=== PATIENT | male | born 1970 | race Caucasian/White ===

== ENCOUNTER 2023-09-21 08:07 | Day surgery (SDC) | payer OTHER, SELFPAY ==
[2023-09-21] VITALS (12 sets, daily range): BP systolic 128–162; BP diastolic 00–106; PULSE 65–75; RESP 16; TEMP 36.4–36.7; O2SAT 94–99; BMI 36.9
--- OUTSIDE RECORDS SUMMARY | 2023-09-21 08:14 | XMS_ITS | Clinical Summary ---
Author Name Unknown Organization [facility] Address [place], [place] [address] Care Team Providers Care Candy Department Manager Name Role Phone GoshenKatya muhammad CODEY Primary Care Provider [phone] Allergies Active Allergy Reactions Criticality Noted Date Comments Penicillins Anaphylaxis High 03/07/2017 Medications Medication Sig Dispensed Refills Start Date End Date Status psyllium (METAMUCIL FIBER SINGLES) 3.4 gram pwpk packet Take 1 Packet by mouth 2 times daily. Active acetaminophen (TYLENOL EXTRA STRGTH) 500 mg tablet Take 2 Tablets (1,000 mg) by mouth every 6 hours if needed. Max acetaminophen dose: 4000mg in 24 hrs. 0 1 Active omeprazole (PRILOSEC) 20 mg Delayed-Release capsule Take 1 Capsule (20 mg) by mouth once daily before a meal. 2 Active lancets (Microlet Lancet)Indications: Controlled type 2 diabetes mellitus without complication, without long-term current use of insulin (HC) TEST one TIME A DAY 100 Each 2 Active fenofibrate 160 mg tabletIndications:H yperlipidemia, unspecified hyperlipidemia type Take 1 Tablet (160 mg) by mouth once daily with a meal. 90 Tablet 3 3 Active naproxen (ALEVE) 220 mg tablet Take 2 Tablets (440 mg) by mouth every 12 hours if needed for Pain. 0 3 Active aspirin (ECOTRIN) 81 mg enteric coated tablet Take 1 Tablet (81 mg) by mouth once daily with a meal. 0 3 Active atenoloL (TENORMIN) 100 mg tabletIndications:H ypertension Take 1 Tablet (100 mg) by mouth once daily. 90 Tablet 1 4 Active gabapentin (NEURONTIN) 100 mg capsuleIndications: Spinal stenosis of lumbar region with neurogenic claudication,Low back pain radiating to both legs Take 2 Capsules (200 mg) by mouth once daily. 180 Capsule 1 4 Active blood sugar diagnostic (Contour Next Test Strips) stripIndications:Co ntrolled type 2 diabetes mellitus without complication, without long-term current use of insulin (HC) USE ONE STRIP TO TEST ONCE DAILY 100 Each 3 4 Active metFORMIN (GLUCOPHAGE XR) 500 mg Extended-Release tabletIndications:C ontrolled type 2 diabetes mellitus without complication, without long-term current use of insulin (HC) Take 3 Tablets (1,500 mg) by mouth once daily with evening meal. 270 Tablet 1 4 Active glipiZIDE extended-release (GLUCOTROL XL) 2.5 mg Extended-Release tabletIndications:C ontrolled type 2 diabetes mellitus without complication, without long-term current use of insulin (HC) Take 1 Tablet (2.5 mg) by mouth once daily before a meal. 60 Tablet 1 4 Active pravastatin (PRAVACHOL) 20 mg tabletIndications:C ontrolled type 2 diabetes mellitus without complication, without long-term current use of insulin (HC) Take 1 Tablet (20 mg) by mouth at bedtime. 90 Tablet 3 4 Active losartan (COZAAR) 100 mg tabletIndications:H ypertension, unspecified type Take 1 Tablet (100 mg) by mouth once daily. 90 Tablet 3 4 Active amLODIPine (NORVASC) 2.5 mg tabletIndications:H ypertension, unspecified type Take 1 Tablet (2.5 mg) by mouth once daily. 31 Tablet 1 4 Active multivitamin (MVI) tablet Take 1 Tablet by mouth once daily. 09/11/19 24 Discontinue d(*Patient states no longer taking) magnesium glycinate 100 mg magnesium cap Take 260 mg by mouth two times daily. 09/11/19 24 Discontinue d(*Patient states no longer taking) losartan (COZAAR) 100 mg tabletIndications:H ypertension Take 1 Tablet (100 mg) by mouth once daily. 90 Tablet 4 09/11/19 24 Discontinue d(Reorder (E-cancel not sent)) metFORMIN (GLUCOPHAGE XR) 500 mg Extended-Release tabletIndications:C ontrolled type 2 diabetes mellitus without complication, without long-term current use of insulin (HC) Take 2 Tablets (1,000 mg) by mouth two times daily with meals. 360 Tablet 1 4 08/26/19 24 Discontinue d(Reorder (E-cancel not sent)) pravastatin (PRAVACHOL) 20 mg tabletIndications:C ontrolled type 2 diabetes mellitus without complication, without long-term current use of insulin (HC) Take 1 Tablet (20 mg) by mouth at bedtime. 60 Tablet 4 09/11/19 24 Discontinue d(Reorder (E-cancel not sent)) amLODIPine (NORVASC) 2.5 mg tabletIndications:H ypertension, unspecified type Take 1 Tablet (2.5 mg) by mouth once daily. 30 Tablet 4 09/11/19 24 Discontinue d(Reorder (E-cancel not sent)) glipiZIDE 2.5 mg tabIndications:Cont rolled type 2 diabetes mellitus without complication, without long-term current use of insulin (HC) Take 2.5 mg by mouth once daily. 30 Tablet 4 09/11/19 24 Discontinue d(Reorder (E-cancel not sent)) Knee WalkerIndications:C alcific Achilles tendonitis,Bone spur of posterior portion of right calcaneus,Deana's deformity of right heel For home use. *Note that item is a rental.* Height: 5'8'' Weight: 235 Diagnosis: right foot surgery 09/21/23, Length of need: 3 months 1 Each 4 09/10/19 Active Problems Problem Noted Date Diagnosed Date Spinal stenosis, lumbar zana on, with neurogenic claudication 03/12/2023 Spinal stenosis of lumbar re gion with neurogenic claudication 03/06/2021 Colon polyps 04/12/2020 Controlled type 2 diabetes m ellitus without complication, without long-term current use of insulin 08/27/2018 Cervical spinal stenosis 08/26/2018 Status post cervical discectomy 08/26/2018 Dysphagia 08/26/2018 Osteophyte of spine 08/26/2018 Sleep apnea 07/20/2018 Overview: Resolved enough with removal of bone spur, repeat sleep study much improved November 2018. See Dr. Brand notes. Gout 08/13/2017 Overview: when on HCTZ GERD (gastroesophageal reflux disease) 8 Hyperlipidemia 01/12/2008 Hypertension 01/12/2008 Resolved Problems Problem Noted Date Diagnosed Date Resolved Date Cervical spinal stenosis 09/16/2018 Prediabetes 08/26/2018 03/17/2019 Impaired fasting glucose 08/13/2017 Class 2 obesity due to exces s calories without serious comorbidity with body mass index (BMI) of 37.0 to 37.9 in adult 08/13/2017 Sleep apnea 08/13/2017 04/12/2020 Overview: can't tolerate CPAP Encounters Date Type Department Care Team Description 09/19/2023 Travel 09/15/2023 Telephone [facility] [address] [place] [phone] Charly Ko DPM Form (Short term disability ) 09/11/2023 7:30 AM CDT Preop Visit [facility] [address] [facility] [place] [address] Katya Ireland NP Pre-Op Exam; Follow Up (Blood pressure ) 09/11/2023 Travel 09/09/2023 Telephone [facility] [address] [place] [address] Charly Ko DPM Questions (surgery ) 09/08/2023 8:30 AM CDT Office Visit [facility] [address] [facility] [address] [place] [phone] Charly Ko DPM Consult (Right achilles tendonitis, discuss surgery ) 09/08/2023 Travel 09/06/2023 Travel 09/06/[address] [address] Katya Ireland NP Refill Request (Atenolol) 08/26/2023 2:20 PM CDT Phone Office Visit [address] [phone] Ktaya Ireland NP Phone Visit (Medication check ) 08/26/2023 Travel 08/18/2023 4:00 PM CDT Nurse/Clinic Staff Only [address] [phone] Blood Pressure 08/18/2023 3:00 PM CDT Office Visit [facility] [address] [phone] Tom Arce PA Ankle Pain/problem (right achilles injury) 08/18/2023 2:55 PM CDT Ancillary Procedure [facility] [address] [place] [address] 08/18/[address] [phone] Katya Ireland NP Follow Up (calling back) 08/18/[address] [address] Charly Ko DPM Appointment Request (Right ankle pain, unspecified chronicity [M25.571]/Achilles tendinitis, right leg [M76.61] /) 08/18/2023 Travel 08/07/2023 7:45 AM CDT - 08/07/2023 11:59 PM CDT Hospital Encounter [facility] [address] [place] [address] Jam Gregg MD Schelling, Derek, PT 08/07/[address] [phone] Katya Ireland NP Refill Request (Contour Next Test Strips) 08/07/2023 Travel 07/31/2023 9:10 AM ANALYTICAL ENGINEER Office Visit [address] [phone] Katya Ireland NP Blood Pressure; Referral (Orthopedic surgeon ); Diabetes (Blood sugars ); Foot Problem (Having swelling in his feet ) 07/31/2023 Travel 07/28/2023 Travel 07/21/2023 7:45 AM ANALYTICAL ENGINEER - 07/21/2023 11:59 PM ANALYTICAL ENGINEER Hospital Encounter [facility] [address] [place] [address] Jam Gregg MD Schelling, Derek, PT 07/21/2023 Travel 07/21/[address] [phone] Katya Ireland, CODEY Refill Request (Gabapentin) 07/14/2023 7:44 AM ANALYTICAL ENGINEER - 07/14/2023 11:59 PM ANALYTICAL ENGINEER Hospital Encounter [facility] [address] [place] [address] Jam Gregg MD Schelling, Derek, PT Encounter for person encountering health services 07/14/2023 Travel 07/10/2023 Transcribe Orders [facility] [address] [place] [address] Jam Gregg MD from Last 3 Months Immunizations Name Administration Dates Next Due COVID-19 vaccine ([employer] 30mcg/0.3mL) 12YO+ BIVALENT PF, MDV 05/19/2022 Tdap 10/13/2016,05/29/2006 Family History Medical History Relation Name Comments Hypertension Brother Sleep apnea Brother Cancer Father ? Heart failure Father Stroke Maternal Uncle Cancer Mother breast X2 Cancer-pancreatic Mother Hypertension Mother Diabetes Paternal Grandmother No Known Problems Sister 1 No Known Problems Sister 2 Relation Name Status Comments Brother Alive Father Maternal Grandfather Maternal Grandmother Maternal Uncle Mother Paternal Grandfather Paternal Grandmother Sister 1 Alive Sister 2 Alive Social History Tobacco Use Types Packs/Day Years Used Date Smoking Tobacco: Never Smokeless Tobacco: Never Tobacco Cessation:Counseling Given: Yes Alcohol Use Standard Drinks/Week Comments Yes 0 (1 standard drink = 0.6 oz pur e alcohol) once a week PHQ-2 Answer Date Recorded PHQ-2 TOTAL SCORE 2 03/02/2023 Social Connections Answer Date Recorded Frequency of Communication with Friends and Fami ly 0 07/28/2023 Financial Resource Strain Answer Date R ecorded Difficulty of Paying Living Expenses 3 07/28/2023 Difficulty of Paying Living Expenses Not on file 07/28/2023 Food Insecurity Answer Date Recorded Worried About Running Out of Food in the Last Ye ar 1 07/28/2023 Transportation Needs Answer Date Record ed Lack of Transportation (Medical) 1 07/28/2023 Housing Stability Answer Date Recorded Unable to Pay for Housing in the Last Year 1 07/28/2023 Sex and Gender Information Value Date Recorded Sex Assigned at Not on file Gender Identity Not on file Sexual Orientation Not on file Obstetrics History Last Filed Vital Signs Vital Sign Reading Time Taken Comments Blood Pressure 130/78 09/11/2023 7:35 AM CDT Pulse 74 09/11/2023 7:35 AM CDT Temperature 36.5 ??C (97.7 ??F) 03/12/2023 2:00 PM CD T Respiratory Rate 16 03/12/2023 3:00 PM CDT Oxygen Saturation 92% 09/08/2023 8:33 AM CDT Inhaled Oxygen Concentration - - Weight 110.2 kg (242 lb 14.4 oz) 09/11/2023 7:35 AM CDT Height 172.7 cm (5' 8) 03/12/2023 6:36 AM CDT Body Mass Index 36.93 03/12/2023 6:36 AM CDT Plan of Treatment Upcoming Encounters Date Type Department Care Team (Late st Contact Info) Description 09/21/2023 8:30 AM CDT Office Visit [facility] [address] [facility] [place] [address] Charly Ko DPM [address] [place] [address] Arrived 09/24/2023 11:30 AM CDT Office Visit [facility] [address] [place] [phone] Charly Ko DPM [address] [place] [address] 10/06/2023 9:15 AM CDT Office Visit [facility] [address] [place] [phone] Charly Ko DPM [address] [place] [address] 11/03/2023 9:30 AM CDT Office Visit [facility] [address] [place] [address] Charly Ko DPM [address] [place] [address] Health Maintenance Due Date Last Done Comments Pneumococcal series for age 6-64 (1 of 2 - PCV) 1974 Hepatitis B series for Diabetes (1 of 3 - 19+ 3-dose series) 1987 Zoster (shingles) series for age 50+ (1 of 2) 2018 COVID-19 vaccine series (2022- season) 2023 05/19/2022, 01/15/2021, 12/25/2020 BMI (ht and wt on same day) for age 18+ 05/19/2023 05/19/2022, 04/04/2021, 03/06/2021, Additional history exists Fecal testing non-DNA (FIT,FOBT,iFOBT) for age 45-75 10/07/2023 10/06/2022, 04/11/2020 Influenza for age 50-64 01/24/2024 Depression screening for age 12+ 03/02/2024 03/02/2023, 03/02/2023, 02/18/2023, Additional history exists HIV for age 15-65 10/23/2024 Postponed from 1983 (Patient discretion) Tetanus booster 10/13/2026 10/13/2016, 05/29/2006 Lipids for age 45-75 07/30/2028 07/31/2023, 05/19/2022, 03/06/2021, Additional history exists Tdap Completed 10/13/2016, 05/29/2006 Hepatitis C screening for age 18-79 Completed 12/06/2021 Medical Devices Implanted Type Area Barrel Lathe Operator Device Identifier Shelf Expiration Date Model / Serial / Lot [id number] llofuse Cor/Can Marge 9 Implanted:Qty: 1 on 09/16/2018 by Jam Gregg MD at [facility] Explanted:at [facility] (Quantity not on file) N/A: Spine [employer] 08/11/2022 [id number] / / [id number] Description:ALLOFUSE COR/CAN MARGE 9MM [id number] llofuse Cor/Can Marge 7mm Implanted:Qty: 1 on 09/16/2018 by Jam Gregg MD at [facility] Explanted:at [facility] (Quantity not on file) N/A: Spine [employer] 02/06/2023 [id number] / / [id number] Description:ALLOFUSE COR/CAN MARGE 7MM Screw Vasile 4.0x16mm Implanted:Qty: 6 on 09/16/2018 by Jam Gregg MD at [facility] N/A: Spine [id number] / / Description:SCREW VASILE 4.0X16 MM Plate Cetra 40mm 2 Lvl Implanted:Qty: 1 on 09/16/2018 by Jam Gregg MD at [facility] N/A: Spine [id number] / / Description:PLATE CETRA 40MM 2 LVL Procedures Procedure Name Priority Date/Time Associated Diagnosis Comments POTASSIUM Routine 09/11/2023 8:20 AM CDT Pre-op exam Hypertension, unspecified type XR ANKLE 3 VIEWS RIGHT Routine 08/18/2023 2:58 PM CDT Right ankle pain, unspecified chronicity URINE ALBUMIN TO CREATININE RATIO, RANDOM Routine 07/31/2023 10:30 AM ANALYTICAL ENGINEER Controlled type 2 diabetes mellitus without complication, without long-term current use of insulin (HC) LIPID PANEL W REFLEX MEASURED LDL Routine 07/31/2023 10:25 AM ANALYTICAL ENGINEER Controlled type 2 diabetes mellitus without complication, without long-term current use of insulin (HC) URIC ACID Routine 07/31/2023 10:25 AM ANALYTICAL ENGINEER History of gout BASIC METABOLIC PANEL Routine 07/31/2023 10:25 AM ANALYTICAL ENGINEER Controlled type 2 diabetes mellitus without complication, without long-term current use of insulin (HC) HEMOGLOBIN A1C Routine 07/31/2023 10:25 AM ANALYTICAL ENGINEER Controlled type 2 diabetes mellitus without complication, without long-term current use of insulin (HC) OCCULT BLOOD IFOBT STOOL Routine 10/06/2022 2:11 PM CDT Screening for colon cancer ANTI HCV Routine 12/06/2021 4:37 PM CDT Encounter for hepatitis C screening test for low risk patient from Last 3 Months or Most Recently Relevant to Health Maintenance Results * POTASSIUM (09/11/2023 8:20 AM CDT) POTASSIUM 4.1 3.5 - 5.1 mmol/L 09/11/2023 8:41 AM CDT [facility] Blood BLOOD SPECIMEN / Unknown Venipuncture / Unknown 09/11/2023 8:20 AM CDT 09/11/2023 8:20 AM CDT Katya Ireland SNOW REMOVER CHEMISTRY [facility] [address] [place], [place] [phone] * XR ANKLE 3 VIEWS RIGHT (08/18/2023 2:58 PM CDT) Anatomical Region Laterality Modality ANKLES, ANKLE R Computed Radiogr aphy 08/19/2023 6:54 AM CDT Narrative 08/19/2023 6:54 AM CDT For Patients: ??As a result of the Cures Act, medical imaging exams and procedure reports are released immediately into your electronic medical record. ??You may view this report before your referring provider. ??If you have questions, please contact your health care provider. INDICATION: Chronic right ankle pain. TECHNIQUE: Three views right ankle. FINDINGS: Degenerative hyper trophic spurring and bone formation at the articular margins. Ankle mortise spacing is maintained. No lytic bone destruction, fracture or dislocation. Small talar beak. Small plantar calcaneal enthesophyte. Soft tissue swelling and extremely large calcification at the insertion of the Achilles tendon consistent with chronic as well as possibly acute tendinitis. Impression : 1. Chronic right ankle arthropathy. No acute abnormality. 2. Enthesophyte with Achilles tendon calcification and marked soft tissue swelling. Dictated by Chong Benites MD @ 08/19/2023 6:54:07 AM (Electronically Signed) Procedure Note Real Benites MD - 08/19/2023 For Patients: As a result of the Cures Act, medical imagingexams and procedure reports are released immediately into your electronicmedical record. You may view this report before your referring provider.If you have questions, please contact your health care provider. INDICATION: Chronic right ankle pain. TECHNIQUE: Three views right ankle. FINDINGS: Degenerative hyper trophic spurring and bone formation at the articularmargins. Ankle mortise spacing is maintained. No lytic bone destruction,fracture or dislocation. Small talar beak. Small plantar calcanealenthesophyte. Soft tissue swelling and extremely large calcification at the insertion ofthe Achilles tendon consistent with chronic as well as possibly acutetendinitis. Impression : 1. Chronic right ankle arthropathy. No acute abnormality. 2. Enthesophyte with Achilles tendon calcification and marked soft tissueswelling. Dictated by Chong Benites MD @ 08/19/2023 6:54:07 AM (Electronically Signed) [facility] * URINE ALBUMIN TO CREATININE RATIO, RANDOM (07/31/2023 10:30 AM ANALYTICAL ENGINEER) ALB RAND URINE 13.8 mg/L 07/31/2023 11:20 PM ANALYTICAL ENGINEER [facility] CREATININE,URIN E 1.55 g/L 07/31/2023 11:20 PM ANALYTICAL ENGINEER [facility] ALBUMIN TO CREATININE RATIO,RAND UR 8.9 <30.0 mg/g creat 07/31/2023 11:20 PM ANALYTICAL ENGINEER [facility] Urine URINE SPECIMEN / Unknown Non-Blood / Unknown 07/31/2023 10:30 AM ANALYTICAL ENGINEER 07/31/2023 10:30 AM ANALYTICAL ENGINEER Narrative [facility] - 07/31/2023 11:20 PM ANALYTICAL ENGINEER If Albumin to Creatinine Ratio is elevated, consider the following: ? Elevations seen with incipient nephropathy associated ?? with diabetes mellitus or hypertension. Stress, exercise,hematuria, ?? and urinary tract infection may also produce elevated results. If clinically indicated, confirm with ?24 Hour Albumin to Creatinine Ratio. ?? Katya Ireland NP URINE [facility] [address] [place] [address], * (ABNORMAL) LIPID PANEL W REFLEX MEASURED LDL (07/31/2023 10:25 AM ANALYTICAL ENGINEER) CHOLESTEROL,TOTAL 114 100 - 199 mg/dL 07/31/2023 10:56 AM ANALYTICAL ENGINEER [facility] Comment: Cholesterol, Total Reference Ranges Desirable <200 mg/dL Borderline 200-239 mg/dL High >=240 mg/dL TRIGLYCERIDES 305(H) <150 mg/dL 07/31/2023 10:56 AM [facility] HDL CHOLESTEROL 32(L) >40 mg/dL 10:56 AM [facility] NON-HDL CHOLESTEROL 82 <145 mg/dl 07/31/2023 10:56 AM [facility] CHOL/HDL RATIO 3.56 <4.50 07/31/2023 10:56 AM [facility] LDL CHOLESTEROL 21 <=130 mg/dL 07/31/2023 10:56 AM [facility] VLDL CHOLESTEROL 61(H) <=30 mg/dL 07/31/2023 10:56 AM [facility] PROVIDER ORDERED STATUS RANDOM 07/31/2023 10:56 AM [facility] Blood BLOOD SPECIMEN / Unknown Venipuncture / Unknown 07/31/2023 10:25 AM ANALYTICAL ENGINEER 07/31/2023 10:27 AM ANALYTICAL ENGINEER Katya Ireland NP CHEMISTRY Performing Organization Address City/[facility]/ZIP Co de Phone Number [facility] [address] [place] [address] * URIC ACID (07/31/2023 10:25 AM ANALYTICAL ENGINEER) URIC ACID 4.8 3.4 - 7.0 mg/dL 07/31/2023 10:56 AM [facility] Blood BLOOD SPECIMEN / Unknown Venipuncture / Unknown 07/31/2023 10:25 AM ANALYTICAL ENGINEER 07/31/2023 10:27 AM ANALYTICAL ENGINEER Katya Ireland NP CHEMISTRY Performing Organization Address City/[facility]/ZIP Co de Phone Number [facility] [address] [place] [address] * (ABNORMAL) HEMOGLOBIN A1C MONITORING (POCT) (07/31/2023 10:25 AM ANALYTICAL ENGINEER) HEMOGLOBIN A1C MONITORING (POCT) 7.8(H) <=6.4 % 07/31/2023 10:44 AM [facility] Blood BLOOD SPECIMEN / Unknown Venipuncture / Unknown 07/31/2023 10:25 AM ANALYTICAL ENGINEER 07/31/2023 10:27 AM [facility] - 07/31/2023 10:44 AM ANALYTICAL ENGINEER ? (<=6.9%) ? Indicates good control ? (7.0% to 7.9%) ? Indicates fair control ? (>=8.0%) ? Indicates poor control ?? NOTE: ??These thresholds are guidelines and ?individual targets may vary. Falsely low levels may be seen with: Recent Transfusion, Recent Significant Blood Loss, Hemolytic Diseases, or Falsely elevated levels may be seen with: Untreated Anemias, Splenectomy ? Katya Ireland NP CHEMISTRY [facility] [address] [place] [address] * (ABNORMAL) BASIC METABOLIC PANEL (07/31/2023 10:25 AM [facility]) SODIUM 141 136 - 145 mmol/L 07/31/2023 10:56 AM [facility] POTASSIUM 4.5 3.5 - 5.1 mmol/L 07/31/2023 10:56 AM [facility] CHLORIDE 103 98 - 107 mmol/L 07/31/2023 10:56 AM [facility] CO2,TOTAL 28 22 - 29 mmol/L 07/31/2023 10:56 AM [facility] ANION GAP 10 5 - 18 07/31/2023 10:56 AM [facility] GLUCOSE 143(H) 70 - 99 mg/dL 07/31/2023 10:56 AM [facility] CALCIUM 9.7 8.6 - 10.0 mg/dL 07/31/2023 10:56 AM [facility] BUN 14 6 - 20 mg/dL 07/31/2023 10:56 AM [facility] CREATININE 0.69(L) 0.70 - 1.20 mg/dL 07/31/2023 10:56 AM [facility] BUN/CREAT RATIO 20 10 - 20 10:56 AM [facility] eGFR >90 >90 mL/min/1.7 3m2 07/31/2023 10:56 AM [facility] Comment:As of 2021, eG FR is calculated by the CKD-EPI creatinine equation without race adjustment. ??eGFR can be influenced by muscle mass, exercise, and diet. ??The reported eGFR is an estimation only and is only applicable if the renal function is stable. Blood BLOOD SPECIMEN / Unknown Venipuncture / Unknown 07/31/2023 10:25 AM ANALYTICAL ENGINEER 07/31/2023 10:27 AM ANALYTICAL ENGINEER Katya Ireland NP CHEMISTRY Performing Organization Address City/[facility]/ZIP Co de Phone Number [facility] [address] [place] [address] * OCCULT BLOOD IFOBT STOOL (10/06/2022 2:11 PM CDT) STOOL BLOOD ,IFOBT Negative Negative 10/08/2022 3:01 PM CDT [facility] Stool STOOL SPECIMEN / Unknown Non-Blood / Unknown 10/06/2022 2:11 PM CDT 10/08/2022 2:11 PM CDT [facility] [address] [place] [address], * ANTI HCV (12/06/2021 4:37 PM CDT) HEPATITIS C ANTIBODY Non-React arturo Non-React arturo 12/07/2021 1:59 PM CDT [facility] Comment:Antibodies to HCV no t detected; does not exclude the possibility of exposure to HCV. Blood BLOOD SPECIMEN / Unknown Venipuncture / Unknown 12/06/2021 4:37 PM CDT 12/06/2021 4:59 PM CDT Katya Ireland SNOW REMOVER SEND OUTS [facility] [address] [place] [address], [place] from Last 3 Months or Most Recently Relevant to Health Maintenance Advance Directives * Full Code (Latest Code Status on File) Date Activated Date Inactivated Comments 03/12/2023 10:28 AM 03/12/2023 5:37 PM Question Answer Comments Code Status Discussion: Per Existing Order * Full Code Date Activated Date Inactivated Comments 03/29/2021 6:54 PM 04/01/2021 2:12 PM Question Answer Comments Code Status Discussion: Per Existing Order * Full Code Date Activated Date Inactivated Comments 09/16/2018 9:08 PM 09/17/2018 6:27 PM Care Teams Candy Department Manager Relationship Specialty Start Date End Date Katya Ireland NP [address] [place] [id number] PCP - General Family Practice 12/01/17
[2023-09-21] MEDS: LACTATED RINGERS 1000 ML 1,000 ML 100 ML IV ×2 (08:30→10:28)
[2023-09-21] MEDS: SODIUM CHLORIDE 0.9 % (FLUSH) 10 ML SYRINGE IVF (08:49)
--- NOTE | 2023-09-21 09:15 | XR_ITS ---
Patient: JOHANNA GUTIERREZ Facility:?[facility] Patient ID:?[id number] Site Patient ID:?[id number]. Site :?[id number] Study:?XRay-Extremity Right CALCANEUS-09/21/2023 11:18:47 AM Ordering Physician:NANI Final Report: Indication: RT CALCANEUS OSTEOTOMY AND ACHILLES REPAIR Technique: One fluoroscopic image of the right calcaneus. Fluoroscopic time 7.1 seconds. IMPRESSION: Fluoroscopic guidance for right calcaneus osteotomy and Achilles repair. Dictated by Earle Hensley MD @ 09/21/2023 12:04:25 PM Signed by:?Earle Hensley MD @09/21/2023 12:04:25 PM (Electronic Signature)
[2023-09-21] MEDS: fentaNYL 100 MCG/2 ML inj IVP (09:29)
[2023-09-21] MEDS: MIDAZOLAM HCL 1 MG/ML inj IVP (09:29)
--- NOTE | 2023-09-21 09:30 | SUR.PREOP ---
TIME?OUT:?927 PT/RN/MDA?VERIFICATION?OF?SURGICAL?SITE Right Foot,?PROCEDURE Nerve Block,?AND?CONSENT OBTAINED?PRIOR?TO?INVASIVE?PROCEDURE.
[2023-09-21] MEDS: CEFAZOLIN 2 GM INJ IVP (09:55)
--- NOTE | 2023-09-21 11:18 | W.ANESCHARGE ---
Anesthesia Charges Start Date/Time Anesthesia Start Date: 09/21/23 Anesthesia Start Time: 09:42 Stop Date/Time Anesthesia Stop Date: 09/21/23 Anesthesia Stop Time: 11:19
--- NOTE | 2023-09-21 11:25 | W.PM.PODPROC ---
Date of Procedure: 09/21/23 Surgeon: Charly Ko DPM Pre-op Diagnosis: 1. 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 bone spur right calcaneus Post-op Diagnosis: 1. 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 bone spur right calcaneus Type of Procedure: 1. calcaneal ostectomy Achilles tendon reattachment right Indications: the patient has had ongoing pain in the right Achilles tendon insertion. He has significant bony spurring. He does not respond to conservative care. He has elected surgical intervention. I reviewed the procedure, recovery, expectation potential complications. These include but not limited to: Poor wound healing, infection, under correction, regrowth, continued pain, possible need for future surgery, deep venous thrombosis, pulmonary embolism, complex regional pain syndrome and possible . He understands risks and written consent was obtained. Site marked. Procedure Description: Patient brought the operating room and a spinal anesthetic was performed by anesthesia. A pre operative popliteal block was also performed by and anesthesia. He was then rolled into a prone position on the operating room table. He was prepped and draped in sterile fashion. Standard time-out protocol followed. The right limb was exsanguinated the tourniquet inflated To 300 mm Hg. Linear incision was made over the posterior calcaneus and Achilles tendon insertion. The incision was carried down through skin subcutaneous tissues. The Achilles tendon was then split down the middle and reflected medial and lateral wait for the large bony spurring. Bone spur was resected with a rongeur. The dorsal superior tubercle was resected with a sagittal saw. A power bur was used to remodel the posterior heel. C-arm confirmed excellent resection of all prominent bone. Area was thoroughly irrigated normal sterile saline. SwiveLock anchor placed in the posterior superior calcaneus x2. The Achilles tendon was debrided and repaired with 3-0 Vicryl. Fiber tape from the SwiveLock anchors were then passed through each slip of the Achilles tendon and the mediolateral slips were anchored back down to the calcaneus. Once slip from each FiberTape was brought together and tensioned into the calcaneus with a SwiveLock anchor. This was done medial and lateral. This point the Achilles tendon was firmly reattached to the calcaneus. Thorough irrigation performed. Subcutaneous tissues reapproximated with 4-0 Vicryl and 4-0 Monocryl. Skin closed with 4-0 Prolene. Sterile dressing was applied. tourniquet was released and capillary fill time returned all digits. Well-padded posterior splint was placed with the foot in gravity dorsiflexion. He was transferred from OR to PACU vital signs stable vascular status intact. He will be discharged per Anesthesia and same-day protocols. He is given both written and verbal postop instructions. He is given oxycodone for pain. He is to be strict nonweightbearing. He will follow up in clinic in 2-3 days. Anesthesia: MAC, regional and spinal Hemostasis: thigh Estimated blood loss (mL): 2 Implants: [employer] SpeedBridge implant system. Disposition: PACU
--- NOTE | 2023-09-21 12:01 | W.ANESCHARGE ---
Anesthesia Charges Start Date/Time Anesthesia Start Date: 09/21/23 Anesthesia Start Time: 09:42 Stop Date/Time Anesthesia Stop Date: 09/21/23 Anesthesia Stop Time: 11:19
--- NOTE | 2023-09-21 12:02 | P.NB_ITS ---
Nerve Block Nerve Block Time Seen by Provider: 09:35 Date Seen: 09/21/23 Type of block requested by surgeon for post-operative analgesia: popliteal Side: right Time out performed: Yes Verification of patient name: Yes Verification of date of : Yes Site marking: site marked Name of person performing procedure: Girish Continuous monitoring Was continuous monitoring of O2 sat, B/P, teletypesetter monitor, recorded every 15 minutes?: Yes Procedure Checklist: sterile prep, needles and gloves Ultrasound guided. Images saved: Yes Medications given in 5ml increments after negative aspiration: Ropivicaine %: 0.5 mL: 20 Needle gauge: 22 Patient tolerated procedure well: Yes Additional comments: Needle noted adjacent to nerve Block Charges Block Charge (with Pro Fee): Sciatic Nerve Use of Ultrasound Machine for Block: Yes- US Guidance/pain block
== END 2023-09-21 12:55 | disposition home or self-care (01) ==
PROVIDERS: PCP Family Medicine; Visit Provider Podiatrist
PROC: (CPT 28300; principal; 2023-09-21 09:15)
DX: M76.61 Achilles tendinitis, right leg (principal); M77.31 Calcaneal spur, right foot; M21.6X1 Other acquired deformities of right foot; M92.61 Juvenile osteochondrosis of tarsus, right ankle; G89.18 Other acute postprocedural pain
CPT/HCPCS: 28118; 27691; 01472; 01480; 64445; 73630; 73650; 76000; 76942; 82962; A4580; C1713; J0690; J1100; J2250; J2405; J2704; J2795; J3010; J7120

== ENCOUNTER 2024-07-05 13:06 | Outpatient (RCR) | payer OTHER, SELFPAY ==
--- NOTE | 2024-07-05 14:42 | PT.OPEX ---
PT [place] Outpatient Eval PT [facility] Outpatient Eval Start: 07/05/24 09:49 Freq: Status: Active Protocol: Document 07/05/24 13:29 MRS (Rec: 07/05/24 14:37 MRS No Response) E-signed By Nataliya Gama DPT Physical Therapy Outpatient Evaluation Insurance Information Recert Due Date 10/02/24 Insurance Name [employer] Medical Diagnosis Osteoarthritis left hip; scheduled for L [place] on 06/2024 Treating Diagnosis Pain in Left Hip M25.552 Stiffness of Hip Left M25.652 Difficulty Walking R26.2 Referring MD Jason Butt MD Subjective Preferred Name King Subjective King reports doing well and here for pre-op evaluation for L [place]. King has been experiencing pain and difficulty with mobility for the past 6-8 months. He experiences pain with bending, lifting, stairs, and walking. King has PMH: diabetes, HTN, arthritis, allergies; penicillin, orthopedic surgeries to remove bone spurs in neck, back, and heels. King plans to stay overnight in hospital and then discharge to home. King's sister will be staying with him for the first week after surgery. Pt's main goal is to walk, bend over, and be active with minimal pain. 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 Pt demonstrated lack ~15 degrees of extension in supine position. Pt limited by pain Strength R HF= 4/5 R Hip ER/IR= 4/5 with pain Balance & Gait independent, antalgic gait pattern with left hip in flexed position during stance Sensation/Reflexes bilateral feet numbness since back surgery but able to sense tactile input and proprioception while walking Functional Test Performed & Score LEFS= 39/80 Assessment Assessment/Impression King is a pleasant 54 y/o male who presents with signs and symptoms consistent with left hip osteoarthritis and to have pre-op PT evaluation. King has DOS: 07/14/[address] Butt . King plans to stay 1 night in the hospital and then discharge home. His sister will be staying with him for at least 1 week after surgery. King has AD from previous orthopedic surgeries. Anticipated deficits/ impairments in pain, ROM, and strength. Pt would benefit from skilled PT interventions to facilitate return to PLOF by increasing strength, ROM, endurance, and independence with pain-free functional mobility.? Primary Functional Limitations pain, impaired ROM, decreased strength, impaired functional mobility and endurance. Plan of Care Rehabilitation Potential Good Physical Therapy Goals Within this session: 1. Pt will verbalize understanding of pre-op/post- op safety, mobility and exercises with home program issued and pt returning for ongoing therapy after [place] replacement. Coordination/Communication With Referral Source Treatment Plan/Direct Interventions Gait Training,Neuromuscular Re -ed,Therapeutic Activities, Therapeutic Exercises Frequency/Duration 1-2x/week for 8-12 weeks; Pt will be receiving OP PT in [place] starting the first week of July Patient Will Be Discharged From Therapy Completion of LTG(s),Skills Plateau,Independent w/HEP, Independently Progressing Evaluation Billing Untimed Code Treatment Minutes 20 Complexity Low Certification Information Initial Certification Date 07/05/24 Ending Certification Date 10/02/24 Provider Signature Required Communication Only-No Signature Required
== END 2024-11-02 23:59 | disposition home or self-care (01) ==
PROVIDERS: PCP Family Medicine; Visit Provider Orthopaedic Surgery
DX: Z48.89 Encounter for other specified surgical aftercare (principal); M16.12 Unilateral primary osteoarthritis, left hip; Z96.642 Presence of left artificial hip joint; Z51.89 Encounter for other specified aftercare
CPT/HCPCS: 97110; 97161; 97530

== ENCOUNTER 2024-07-14 07:02 | Day surgery (SDC) | payer OTHER, SELFPAY ==
[2024-07-14] VITALS (25 sets, daily range): BP systolic 123–177; BP diastolic 9–115; PULSE 71–114; RESP 12–17; TEMP 36.4–37.2; O2SAT 92–100; BMI 36.6
--- OUTSIDE RECORDS SUMMARY | 2024-07-14 07:05 | XMS_ITS | Clinical Summary ---
Author Organization [email or web address] Address [address] [place] [id number] Care Team Providers Care Distribution Transformer Assembler Name Role Phone Bryn Irelandie CODEY Primary Care Provider [phone] Allergies Active Allergy Reactions Criticality Noted Date Comments Penicillins Anaphylaxis High 03/07/2017 Medications psyllium (METAMUCIL FIBER SINGLES) 3.4 gram pwpk packet Take 1 Packet by mouth 2 times daily. Active omeprazole (PRILOSEC) 20 mg Delayed-Release capsule Take 1 Capsule (20 mg) by mouth once daily before a meal. 05/19/20 22 Active lancets (Microlet Lancet)Indications :Controlled type 2 diabetes mellitus without complication, without long-term current use of insulin (HC) TEST one TIME A DAY 100 Each 05/19/20 22 Active aspirin (ECOTRIN) 81 mg enteric coated tablet Take 1 Tablet (81 mg) by mouth once daily with a meal. 0 03/02/20 23 Active blood sugar diagnostic (Contour Next Test Strips) stripIndications:C ontrolled type 2 diabetes mellitus without complication, without long-term current use of insulin (HC) USE ONE STRIP TO TEST ONCE DAILY 100 Each 3 08/08/19 24 Active pravastatin (PRAVACHOL) 20 mg tabletIndications: Controlled type 2 diabetes mellitus without complication, without long-term current use of insulin (HC) Take 1 Tablet (20 mg) by mouth at bedtime. 90 Tablet 3 09/11/19 24 Active losartan (COZAAR) 100 mg tabletIndications: Hypertension, unspecified type Take 1 Tablet (100 mg) by mouth once daily. 90 Tablet 3 09/11/19 24 Active atenoloL (TENORMIN) 100 mg tabletIndications: Hypertension TAKE ONE TABLET BY MOUTH ONCE DAILY 90 Tablet 1 01/30/20 24 Active acetaminophen SR (Tylenol 8 Hour) 650 mg Extended-Release tablet 2 tablets at bedtime/ Max acetaminophen dose: 4000mg in 24 hrs. 05/03/20 24 Active gabapentin (NEURONTIN) 100 mg capsuleIndications :Spinal stenosis of lumbar region with neurogenic claudication,Low back pain radiating to both legs Take 3 Capsules (300 mg) by mouth once daily. 270 Capsule 1 05/03/20 24 Active metFORMIN (GLUCOPHAGE XR) 500 mg Extended-Release tabletIndications: Controlled type 2 diabetes mellitus without complication, without long-term current use of insulin (HC) Take 3 Tablets (1,500 mg) by mouth once daily with evening meal. 270 Tablet 3 05/03/20 24 Active fenofibrate 160 mg tabletIndications: Hyperlipidemia, unspecified hyperlipidemia type Take 1 Tablet (160 mg) by mouth once daily with a meal. 90 Tablet 2 05/03/20 24 Active glipiZIDE extended-release (GLUCOTROL XL) 5 mg Extended-Release tabletIndications: Controlled type 2 diabetes mellitus without complication, without long-term current use of insulin (HC) Take 1 Tablet (5 mg) by mouth once daily before a meal. 90 Tablet 1 05/04/20 24 Active ibuprofen (ADVIL; MOTRIN) 200 mg tablet 3 tablets every 6-8 hours 05/16/20 24 Active spironolactone (ALDACTONE) 25 mg tabletIndications: Hypertension, unspecified type Take 1 Tablet (25 mg) by mouth once daily in the morning. 90 Tablet 1 05/16/20 24 Active tiZANidine (ZANAFLEX) 2 mg tabletIndications: Chronic bilateral low back pain with bilateral sciatica Take 1-2 Tablets (2-4 mg) by mouth every 8 hours if needed for Muscle Spasm. 30 Tablet 1 05/23/20 24 Active Active Problems Problem Noted Date Diagnosed Date Spinal stenosis, lumbar zana on, with neurogenic claudication 03/12/2023 Spinal stenosis of lumbar re gion with neurogenic claudication 03/06/2021 Colon polyps 04/12/2020 Controlled type 2 diabetes m ellitus without complication, without long-term current use of insulin 08/27/2018 Cervical spinal stenosis 08/26/2018 Status post cervical discectomy 08/26/2018 Dysphagia 08/26/2018 Osteophyte of spine 08/26/2018 Sleep apnea 07/20/2018 Overview (05/19/2022): Resolved enough with removal of bone spur, repeat sleep study much improved November 2018. See Dr. Brand notes. Gout 08/13/2017 Overview (08/13/2017): when on HCTZ GERD (gastroesophageal reflux disease) 8 Hyperlipidemia 01/12/2008 Hypertension 01/12/2008 Resolved Problems Problem Noted Date Diagnosed Date Resolved Date Cervical spinal stenosis 09/16/2018 Prediabetes 08/26/2018 03/17/2019 Impaired fasting glucose 08/13/2017 Class 2 obesity due to exces s calories without serious comorbidity with body mass index (BMI) of 37.0 to 37.9 in adult 08/13/2017 Sleep apnea 08/13/2017 04/12/2020 Overview (08/13/2017): can't tolerate CPAP Encounters Date Type Department Care Team Description 07/11/2024 8:45 AM STOCK CHECKER Office Visit [address] [address] Katya Ireland NP Pre-Op Exam 07/11/2024 Travel 07/09/2024 Travel 06/01/2024 2:00 PM STOCK CHECKER Office Visit [facility] [address] [address] [place] [address] Tom Arce PA Consult (left hip) 06/01/2024 Travel 05/28/2024 Travel 05/16/2024 10:00 AM STOCK CHECKER Office Visit [facility] [address] [place] [address] Katya Ireland NP Recheck (Medications and go over MRI results) 05/16/2024 Travel 05/14/2024 Travel 05/12/2024 10:41 AM STOCK CHECKER - 05/12/2024 11:59 PM STOCK CHECKER Hospital Encounter [facility] [address] [facility] [place] [address] Katya Ireland NP Chronic bilateral low back pain with bilateral sciatica; Spinal stenosis of lumbar region with neurogenic claudication 05/12/2024 Travel 05/04/2024 Orders Only [facility] [address] [place] [address] Katya Ireland NP <No scans attached> 05/03/2024 3:50 PM STOCK CHECKER Ancillary Procedure [facility] [address] [place] [address] 05/03/2024 2:20 PM STOCK CHECKER Office Visit [facility] [address] [place] [address] Katya Ireland NP Back Pain (radiates down legs, causing weakness); Medication Management (refills) 05/03/2024 Telephone [facility] [address] [place] [address] Katya Ireland NP MRI claustrophobic 05/03/2024 Travel 05/01/2024 Travel from Last 3 Months Immunizations Name Administration Dates Next Due COVID-19 vaccine ([employer] 30mcg/0.3mL) 12YO+ BIVALENT PF, MDV 05/19/2022 [...] PHQ-2 Answer Date Recorded PHQ-2 TOTAL SCORE 0 05/03/2024 Social Connections Answer Date Recorded Do you often feel lonely or isolated from those around you? 0 07/28/2023 Financial Resource Strain Answer Date R ecorded Difficulty of Paying Living Expenses 3 07/28/2023 Difficulty of Paying Living Expenses Not on file 07/28/2023 Food Insecurity Answer Date Recorded Do you worry your food will run out before you are able to buy more? 1 07/28/2023 Transportation Needs Answer Date Record ed Does lack of transportation keep you from medica l appointments? 1 07/28/2023 Does lack of transportation keep you from work, meetings or getting things that you need? 1 07/28/2023 Housing Stability Answer Date Recorded What is your housing situation today? 1 07/28/2023 Utilities Answer Date Recorded Do you have trouble paying f or utilities (for example, heat, electricity, water, phone)? 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 Not on file Not on file Not o n file Obstetrics History Last Filed Vital Signs Vital Sign Reading Time Taken Comments Blood Pressure 136/78 07/11/2024 8:55 AM STOCK CHECKER Pulse 74 07/11/2024 8:55 AM STOCK CHECKER Temperature 36.4 C (97.6 F) 11/03/2023 9:41 AM CDT Respiratory Rate 16 03/12/2023 3:00 PM CDT Oxygen Saturation 95% 03/01/2024 8:32 AM CDT Inhaled Oxygen Concentration - - Weight 109.4 kg (241 lb 3.2 oz) 07/11/2024 8:55 AM STOCK CHECKER Height 172 cm (5' 7.72) 05/03/2024 2:28 PM STOCK CHECKER Body Mass Index 36.98 05/03/2024 2:28 PM STOCK CHECKER Plan of Treatment Health Maintenance Due Date Last Done Comments Hepatitis B series for Diabetes (1 of 3 - 19+ 3-dose series) 1987 Pneumococcal series for age 50+ (1 of 2 - PCV) 1987 Zoster (shingles) series for age 50+ (1 of 2) 2018 Fecal testing non-DNA (FIT,FOBT,iFOBT) for age 45-75 10/07/2023 10/06/2022, 04/11/2020 COVID-19 vaccine series ( season) 2024 05/19/2022, 01/15/2021, 12/25/2020 Influenza for age 50-64 01/24/2024 HIV for age 15-65 10/23/2024 Postponed from 1983 (Patient discretion) BMI (ht and wt on same day) for age 18+ 05/03/2025 05/03/2024, 05/19/2022, 04/04/2021, Additional history exists Depression screening for age 12+ 05/03/2025 05/03/2024, 05/03/2024, 03/02/2023, Additional history exists Tetanus booster 10/13/2026 10/13/2016, 05/29/2006 Lipids for age 45-75 07/30/2028 07/31/2023, 05/19/2022, 03/06/2021, Additional history exists Tdap Completed 10/13/2016, 05/29/2006 Hepatitis C screening for age 18-79 Completed 12/06/2021 Medical Devices Implanted Type Area Change Person Device Identifier Shelf Expiration Date Model / Serial / Lot [id number] llofuse Cor/Can Marge 9 Implanted:Qty: 1 on 09/16/2018 by Jam Gregg MD at Explanted:at (Quantity not on file) N/A: Spine [employer] 08/11/2022 [id number] / / [id number] Description:ALLOFUSE COR/CAN MARGE 9MM [id number] llofuse Cor/Can Marge 7mm Implanted:Qty: 1 on 09/16/2018 by Jam Gregg MD at Explanted:at (Quantity not on file) N/A: Spine [employer] 02/06/2023 [id number] / / [id number] Description:ALLOFUSE COR/CAN MARGE 7MM Screw Vasile 4.0x16mm Implanted:Qty: 6 on 09/16/2018 by Jam Gregg MD at N/A: Spine [id number] / / Description:SCREW VASILE 4.0X16 MM Plate Cetra 40mm 2 Lvl Implanted:Qty: 1 on 09/16/2018 by Jam Gregg MD at N/A: Spine [id number] / / Description:PLATE CETRA 40MM 2 LVL Procedures Procedure Name Priority Date/Time Associated Diagnosis Comments BASIC METABOLIC PANEL STAT 07/11/2024 10:05 AM STOCK CHECKER Pre-op exam HEMOGLOBIN STAT 07/11/2024 10:05 AM STOCK CHECKER Pre-op exam BUN Routine 05/16/2024 11:00 AM STOCK CHECKER Hypertension, unspecified type CREATININE Routine 05/16/2024 11:00 AM STOCK CHECKER Hypertension, unspecified type SODIUM Routine 05/16/2024 11:00 AM STOCK CHECKER Hypertension, unspecified type POTASSIUM Routine 05/16/2024 11:00 AM STOCK CHECKER Hypertension, unspecified type SCAN-ELECTROCARDIOG MELISSA EKG 05/16/2024 12:00 AM STOCK CHECKER MR SPINE LUMBAR WWO YASMIN 05/12/2024 1 1:30 AM STOCK CHECKER Chronic bilateral low back pain with bilateral sciatica Spinal stenosis of lumbar region with neurogenic claudication XR HIP 2 OR 3 VIEWS W PELVIS LEFT Routine 05/03/2024 3:59 PM STOCK CHECKER Hip pain, left HEMOGLOBIN A1C Routine 05/03/2024 3:37 PM STOCK CHECKER Controlled type 2 diabetes mellitus without complication, without long-term current use of insulin (HC) BASIC METABOLIC PANEL Routine 05/03/2024 3:37 PM STOCK CHECKER Controlled type 2 diabetes mellitus without complication, without long-term current use of insulin (HC) Hypertension, unspecified type Gout, unspecified cause, unspecified chronicity, unspecified site URIC ACID Routine 05/03/2024 3:37 PM STOCK CHECKER Gout, unspecified cause, unspecified chronicity, unspecified site LIPID PANEL W REFLEX MEASURED LDL Routine 07/31/2023 10:25 AM STOCK CHECKER Controlled type 2 diabetes mellitus without complication, without long-term current use of insulin (HC) OCCULT BLOOD IFOBT STOOL Routine 10/06/2022 2:11 PM CDT Screening for colon cancer ANTI HCV Routine 12/06/2021 4:37 PM CDT Encounter for hepatitis C screening test for low risk patient from Last 3 Months or Most Recently Relevant to Health Maintenance Results * STAT Hemoglobin (07/11/2024 10:05 AM [facility]) HEMOGLOBIN 15.4 13.5 - 17.5 g/dL 07/11/2024 10:46 AM [facility] MCV 88 80 - 100 fL 07/11/2024 10:46 AM [facility] Blood BLOOD SPECIMEN / Unknown [facility] / Unknown 07/11/2024 10:05 AM STOCK CHECKER 07/11/2024 10:05 AM [facility] Katya Ireland NP HEMATOLOGY Final Result [facility] [address] [place] [address] * (ABNORMAL) STAT Basic Metabolic Panel BMP (07/11/2024 10:05 AM [facility]) Only the most recent of2 resultswithin the time period is included. SODIUM 139 136 - 145 mmol/L 07/11/2024 11:03 AM [facility] POTASSIUM 4.4 3.5 - 5.1 mmol/L 07/11/2024 11:03 AM [facility] CHLORIDE 102 98 - 107 mmol/L 07/11/2024 11:03 AM [facility] CO2,TOTAL 27 22 - 29 mmol/L 07/11/2024 11:03 AM [facility] ANION GAP 10 5 - 18 07/11/2024 11:03 AM [facility] GLUCOSE 129(H) 70 - 99 mg/dL 07/11/2024 11:03 AM [facility] CALCIUM 10.2 8.8 - 10.4 mg/dL 07/11/2024 11:03 AM [facility] Comment: Reference ranges for this test were updated on 03/29/2024 to reflect our healthy population more accurately. Reference range changes are not retroactively applied to results, but previous results using the same methodology can be interpreted in the context of the new reference range. BUN 15 6 - 20 mg/dL 07/11/2024 11:03 AM [facility] CREATININE 0.67(L) 0.70 - 1.20 mg/dL 07/11/2024 11:03 AM [facility] BUN/CREAT RATIO 22(H) 10 - 20 11:03 AM [facility] eGFR >90 >90 mL/min/1. 73m2 07/11/2024 11:03 AM [facility] Comment:As of 2021, eG FR is calculated by the CKD-EPI creatinine equation without race adjustment. eGFR can be influenced by muscle mass, exercise, and diet. The reported eGFR is an estimation only and is only applicable if the renal function is stable. Blood BLOOD SPECIMEN / Unknown [facility] / Unknown 07/11/2024 10:05 AM STOCK CHECKER 07/11/2024 10:05 AM STOCK CHECKER Katya Ireland NP CHEMISTRY Final Result [facility] [address] [place] [address] * BUN (05/16/2024 11:00 AM STOCK CHECKER) UREA NITROGEN (BUN) 14 7 - 25 mg/dL [facility] Blood BLOOD SPECIMEN / Unknown 05/16/2024 11:00 AM STOCK CHECKER 05/16/2024 11:01 AM STOCK CHECKER Narrative [facility] - 05/17/2024 4:07 AM STOCK CHECKER FASTING:NO FASTING: NO us Katya Ireland NP CHEMISTRY Final Result Performing Organization Address [facility] [employer] Phone Number [facility] [address] [place] [address], [place] [phone] [facility] [address] [place] [address] * SODIUM (05/16/2024 11:00 AM STOCK CHECKER) SODIUM 140 135 - 146 mmol/L [facility] Blood BLOOD SPECIMEN / Unknown 05/16/2024 11:00 AM STOCK CHECKER 05/16/2024 11:01 AM STOCK CHECKER Narrative [facility] - 05/17/2024 4:07 AM STOCK CHECKER FASTING:NO FASTING: NO us Katya Ireland MANAGER PLAN CHEMISTRY Final Result Performing Organization Address [facility] [place] Phone Number [facility] [address] [place] [address], [place] [phone] [facility] [address] [place] [address] * POTASSIUM (05/16/2024 11:00 AM STOCK CHECKER) POTASSIUM 4.5 3.5 - 5.3 mmol/L [facility] Blood BLOOD SPECIMEN / Unknown 05/16/2024 11:00 AM STOCK CHECKER 05/16/2024 11:01 AM STOCK CHECKER Narrative [facility] - 05/17/2024 4:07 AM STOCK CHECKER FASTING:NO FASTING: NO us Katya Ireland MANAGER PLAN CHEMISTRY Final Result Performing Organization Address [facility] [employer] Phone Number [facility] [address] [place] [address], [place] [phone] [facility] [address] [place] [address] * CREATININE (05/16/2024 11:00 AM STOCK CHECKER) CREATININE 0.76 0.70 - 1.30 mg/dL [facility] EGFR 105 > OR = 60 mL/min/1.73 m2 [facility] Blood BLOOD SPECIMEN / Unknown 05/16/2024 11:00 AM STOCK CHECKER 05/16/2024 11:01 AM STOCK CHECKER Narrative [facility] - 05/17/2024 4:07 AM STOCK CHECKER FASTING:NO FASTING: NO Katya Ireland NP CHEMISTRY Final Result [facility] [address] [place] [address], [facility] / ?.??[facility] [address] [place] [address] * SCAN-ELECTROCARDIOGRAM EKG (05/16/2024 12:00 AM STOCK CHECKER) us Scanner OTHER Final Result * MR SPINE LUMBAR WWO (05/12/2024 11:30 AM STOCK CHECKER) Anatomical Region Laterality Modality Spine, LUMBAR SPINE Magnetic Res onance 05/12/2024 2:30 PM STOCK CHECKER Narrative 05/12/2024 2:30 PM STOCK CHECKER For Patients: As a result of the Century Cures Act, medical imaging exams and procedure reports are released immediately into your electronic medical record. You may view this report before your referring provider. If you have questions, please contact your health care provider. Indication: Chronic bilateral low back pain with bilateral sciatica. Lumbar spinal stenosis with neurogenic claudication and radiculopathy. Technique: Multiplanar, multisequence, MRI of the lumbar spine, obtained without and with contrast. A total of 25 mL of Dotarem IV contrast was administered. Comparison: MRI lumbar spine 01/12/2023 Findings: For numbering purposes, the S1 segment is partially lumbarized, followed by a rudimentary S1-S2 intervertebral disc. The normal lumbar lordosis is preserved. Trace retrolisthesis at L1-2, L2-3 and L3-4, trace anterolisthesis at L4-5. Small intraosseous hemangioma at L1. No suspicious bone marrow lesion. Postsurgical changes of left hemilaminotomy at L2-3 and decompressive laminectomy at L4-5 and L5-S1. No suspicious findings identified in the paraspinal soft tissues. Trace central fluid signal within the distal cord at the T12-L1 level, conus medullaris terminating at L1-L2. Bony ankylosis across the bilateral SI joints. T12-L1: No neural foraminal or spinal canal stenosis. L1-L2: Mild diffuse disc bulge, right asymmetric facet arthropathy. No neural foraminal or spinal canal stenosis. L2-L3: Postop changes, diffuse disc bulge, facet arthropathy. Mild right, moderate left neural foraminal stenosis. Mild spinal canal narrowing. L3-L4: Diffuse disc bulge, central disc protrusion, facet arthropathy. Moderate left, moderately severe right neural foraminal stenosis. Moderately severe spinal canal stenosis with potential descending L4 nerve root impingement along the lateral recesses. L4-L5: Postop changes, diffuse disc bulge, suspect recurrent central disc extrusion, facet arthropathy. Moderate right, moderately severe left neural foraminal stenosis, similar, with severe spinal canal stenosis, previously critical. L5-S1: Postop changes, laterally eccentric diffuse disc bulge, facet arthropathy. Moderate left, moderately severe right neural foraminal stenosis. No spinal canal stenosis. Impression: 1. Lumbar spondylosis, low-grade spondylolisthesis, and postop changes as detailed. 2. At L2-L3, moderate left neural foraminal stenosis, similar to 01/12/2023. 3. At L3-L4, moderately severe right and moderate left neural foraminal stenosis, with moderately severe spinal canal stenosis and potential impingement of the exiting right L3 and bilateral descending L4 nerve roots, similar. 4. At L4-L5, presumed interval postsurgical changes, with suspected recurrent central disc extrusion and severe spinal canal stenosis, previously critically stenosed. Similar moderately severe left and moderate right neural foraminal stenosis. 5. At L5-S1, moderately severe right and moderate left neural foraminal stenosis, similar. Dictated by Adwoa Guo MD @ 05/12/2024 2:30:17 PM (Electronically Signed) Procedure Note GuoAdwoa kim, DO - 05/12/2024 For Patients: As a result of the 21st Century Cures Act, medical imagingexams and procedure reports are released immediately into your electronicmedical record. You may view this report before your referring provider.If you have questions, please contact your health care provider. Indication: Chronic bilateral low back pain with bilateral sciatica. Lumbar spinalstenosis with neurogenic claudication and radiculopathy. Technique: Multiplanar, multisequence, MRI of the lumbar spine, obtained without andwith contrast. A total of 25 mL of Dotarem IV contrast was administered. Comparison: MRI lumbar spine 01/12/2023 Findings: For numbering purposes, the S1 segment is partially lumbarized, followedby a rudimentary S1-S2 intervertebral disc. The normal lumbar lordosis ispreserved. Trace retrolisthesis at L1-2, L2-3 and L3-4, traceanterolisthesis at L4-5. Small intraosseous hemangioma at L1. Nosuspicious bone marrow lesion. Postsurgical changes of left hemilaminotomyat L2-3 and decompressive laminectomy at L4-5 and L5-S1. No suspiciousfindings identified in the paraspinal soft tissues. Trace central fluidsignal within the distal cord at the T12-L1 level, conus medullaristerminating at L1-L2. Bony ankylosis across the bilateral SI joints. T12-L1: No neural foraminal or spinal canal stenosis. L1-L2: Mild diffuse disc bulge, right asymmetric facet arthropathy. Noneural foraminal or spinal canal stenosis. L2-L3: Postop changes, diffuse disc bulge, facet arthropathy. Mild right,moderate left neural foraminal stenosis. Mild spinal canal narrowing. L3-L4: Diffuse disc bulge, central disc protrusion, facet arthropathy.Moderate left, moderately severe right neural foraminal stenosis.Moderately severe spinal canal stenosis with potential descending L4 nerveroot impingement along the lateral recesses. L4-L5: Postop changes, diffuse disc bulge, suspect recurrent central discextrusion, facet arthropathy. Moderate right, moderately severe leftneural foraminal stenosis, similar, with severe spinal canal stenosis,previously critical. L5-S1: Postop changes, laterally eccentric diffuse disc bulge, facetarthropathy. Moderate left, moderately severe right neural foraminalstenosis. No spinal canal stenosis. Impression: 1. Lumbar spondylosis, low-grade spondylolisthesis, and postop changes asdetailed. 2. At L2-L3, moderate left neural foraminal stenosis, similar to01/12/2023. 3. At L3-L4, moderately severe right and moderate left neural foraminalstenosis, with moderately severe spinal canal stenosis and potentialimpingement of the exiting right L3 and bilateral descending L4 nerveroots, similar. 4. At L4-L5, presumed interval postsurgical changes, with suspectedrecurrent central disc extrusion and severe spinal canal stenosis,previously critically stenosed. Similar moderately severe left andmoderate right neural foraminal stenosis. 5. At L5-S1, moderately severe right and moderate left neural foraminalstenosis, similar. Dictated by Adwoa Guo MD @ 05/12/2024 2:30:17 PM (Electronically Signed) us Katya Ireland NP MR Final Result * XR HIP 2 OR 3 VIEWS W PELVIS LEFT (05/03/2024 3:59 PM STOCK CHECKER) Anatomical Region Laterality Modality HIPS, HIPL, Pelvis Computed Radi ography 05/04/2024 10:1 6 AM STOCK CHECKER Narrative 05/04/2024 10:16 AM STOCK CHECKER For Patients: As a result of the Cures Act, medical imaging exams and procedure reports are released immediately into your electronic medical record. You may view this report before your referring provider. If you have questions, please contact your health care provider. INDICATION: Left hip pain. TECHNIQUE: AP pelvis and 2 views of the left hip. FINDINGS: Joint space narrowing and hypertrophic change in the left hip. Near complete loss of superolateral joint space. Subchondral sclerosis in the acetabulum. Degenerative changes to a lesser degree in the right hip. Dictated by Francois Rivera MD @ 05/04/2024 10:16:59 AM (Electronically Signed) Procedure Note Francois Rivera MD - 05/04/2024 For Patients: As a result of the Cures Act, medical imagingexams and procedure reports are released immediately into your electronicmedical record. You may view this report before your referring provider.If you have questions, please contact your health care provider. INDICATION: Left hip pain. TECHNIQUE: AP pelvis and 2 views of the left hip. FINDINGS: Joint space narrowing and hypertrophic change in the left hip. Nearcomplete loss of superolateral joint space. Subchondral sclerosis in theacetabulum. Degenerative changes to a lesser degree in the right hip. Dictated by Francois Rivera MD @ 05/04/2024 10:16:59 AM (Electronically Signed) Katya Ireland NP GENERAL IMAGING Final Result * (ABNORMAL) HEMOGLOBIN A1C (05/03/2024 3:37 PM STOCK CHECKER) HEMOGLOBIN A1C 7.7(H) <5.7 % of total Hgb [facility] Comment: For someone without known diabetes, a hemoglobin A1c value of 6.5% or greater indicates that they may have diabetes and this should be confirmed with a follow-up test. For someone with known diabetes, a value <7% indicates that their diabetes is well controlled and a value greater than or equal to 7% indicates suboptimal control. A1c targets should be individualized based on duration of diabetes, age, comorbid conditions, and other considerations. Currently, no consensus exists regarding use of hemoglobin A1c for diagnosis of diabetes for children. Blood BLOOD SPECIMEN / Unknown 05/03/2024 3:37 PM STOCK CHECKER 05/03/2024 3:38 PM STOCK CHECKER Narrative [facility] - 05/04/2024 3:39 AM STOCK CHECKER FASTING:NO FASTING: NO Katya Ireland NP CHEMISTRY Final Result [facility] [address] [place] [address], [facility] [address] [place] [address] * URIC ACID (05/03/2024 3:37 PM STOCK CHECKER) URIC ACID 4.4 4.0 - 8.0 mg/dL [facility] Comment: Therapeutic target for gout patients: <6.0 mg/dL Blood BLOOD SPECIMEN / Unknown 05/03/2024 3:37 PM STOCK CHECKER 05/03/2024 3:38 PM STOCK CHECKER Narrative [facility] - 05/04/2024 3:26 AM STOCK CHECKER FASTING:NO FASTING: NO us Katya Ireland NP CHEMISTRY Final Result [facility] [address] [place] [address], [facility] [address] [place] [address] * (ABNORMAL) LIPID PANEL W REFLEX MEASURED LDL (07/31/2023 10:25 AM STOCK CHECKER) Pathologist [facility] CHOLESTEROL,TOTAL 114 100 - 199 mg/dL 07/31/2023 10:56 AM [facility] Comment: Cholesterol, Total Reference Ranges Desirable <200 mg/dL Borderline 200-239 mg/dL High >=240 mg/dL TRIGLYCERIDES 305(H) <150 mg/dL 07/31/2023 10:56 AM [facility] HDL CHOLESTEROL 32(L) >40 mg/dL 10:56 AM [facility] NON-HDL CHOLESTEROL 82 <145 mg/dl 07/31/2023 10:56 AM [facility] CHOL/HDL RATIO 3.56 <4.50 07/31/2023 10:56 AM [facility] LDL CHOLESTEROL 21 <=130 mg/dL 07/31/2023 10:56 AM [facility] VLDL CHOLESTEROL 61(H) <=30 mg/dL 07/31/2023 10:56 AM [facility] PROVIDER ORDERED STATUS RANDOM 07/31/2023 10:56 AM [facility] Blood BLOOD SPECIMEN / Unknown Venipuncture / Unknown 07/31/2023 10:25 AM STOCK CHECKER 07/31/2023 10:27 AM STOCK CHECKER us Katya Ireland MANAGER PLAN CHEMISTRY Final Result Performing Organization Address City/[facility]/ZIP Co de Phone Number [facility] [address] [place] [address] * OCCULT BLOOD IFOBT STOOL (10/06/2022 2:11 PM CDT) STOOL BLOOD ,IFOBT Negative Negative 10/08/2022 3:01 PM CDT [facility] Stool STOOL SPECIMEN / Unknown Non-Blood / Unknown 10/06/2022 2:11 PM CDT 10/08/2022 2:11 PM CDT [facility] Fin al Result Performing Organization Address [facility] Co de Phone Number [facility] [address] [place] [address], * ANTI HCV (12/06/2021 4:37 PM CDT) Pathologist [facility] HEPATITIS C ANTIBODY Non-React arturo Non-React arturo 12/07/2021 1:59 PM CDT [facility] Comment:Antibodies to HCV no t detected; does not exclude the possibility of exposure to HCV. Blood BLOOD SPECIMEN / Unknown Venipuncture / Unknown 12/06/2021 4:37 PM CDT 12/06/2021 4:59 PM CDT Katya Ireland NP SEND OUTS Final Result Performing Organization Address City/[facility] Co de Phone Number [facility] [address] [place] [address], [place] from Last 3 Months or Most Recently Relevant to Health Maintenance Insurance ROB ELIO [id number] Advance Directives * Full Code (Latest Code [...] 9:08 PM 09/17/2018 6:27 PM Care Teams Distribution Transformer Assembler Relationship Specialty Start Date End Date Katya Ireland NP [address] [place] [address] [place] [address] PCP - General Family Practice 12/01/17
--- OUTSIDE RECORDS SUMMARY | 2024-07-14 07:05 | XMS_ITS | Continuity of Care Document ---
Author Organization [facility] Address [address] [place] [address] Phone Care Team Providers Care Clinical Program Director Name Role Phone Cristino KIMBALL, PhD, Jam Unavailable Unavai lable Allergies, Adverse Reactions, Alerts Substance Reaction Status Criticality PENICILLIN Active No Information Medications Medication Instructions Dosage Effective Dates (start - stop) Status Comments TYLENOL (unknown strength) Not Available - Active GLIPIZIDE (unknown strength) Not Available - Active PRAVASTATIN SODIUM (unknown strength) Not Available - Active SPIRONOLACTONE (unknown strength) Not Available - Active TIZANIDINE HCL (unknown strength) Not Available - Active GABAPENTIN (unknown strength) Not Available - Active METFORMIN HCL (unknown strength) Not Available - Active ASPIRIN (unknown strength) Not Available - Active OMEPRAZOLE (unknown strength) Not Available - Active ATENOLOL (unknown strength) Not Available - Active FENOFIBRATE (unknown strength) Not Available - Active LOSARTAN POTASSIUM (unknown strength) Not Available - Active ALLOPURINOL (unknown strength) Not Available - No Longer Active Procedures Procedure Date Office/Outpatient Visit,Est, Mod 2024 Office/Outpatient Visit,Est, Mod 2023 Postop Followup Visit Postop Followup Visit Postop Followup Visit Lami, Facetectomy/Foraminotomy, Lumbar ( Stenosis) Lami, Facetectomy/Foraminotomy, Lumbar ( Stenosis) Office/Outpatient Visit,Est, Mod Sep-05- 2023 Postop Followup Visit Postop Followup Visit Postop Followup Visit Lami, Facetectomy/Foraminotomy, Lumbar ( Stenosis) Lami, Facetectomy/Foraminotomy - Additio nal Level(s) - PA Lami, Facetectomy/Foraminotomy, Lumbar ( Stenosis) Lami, Facetectomy/Foraminotomy - Additio nal Level(s) Office/Outpatient Visit,Est, High OFFICE/OUTPATIENT VISIT EST Phone Office/Outpatient Visit,Est, Mod 2020 Office/Outpatient Visit,Est, Low 2018 Postop Followup Visit Pa Neck Spine Fuse & Removal Addl Pa Addl Neck Spine Fusion Pa Assist Insert Spine Fix Dev, Ant, 2-3 Seg Neck Spine Fuse & Removal Addl 19 Addl Neck Spine Fusion Insert Spine Fix Dev, Ant, 2-3 Seg Allograft, Spine Surg, Structural Autograft, Spine Surgery, Local - 019 BONE MARROW ASPIR BONE GRFG Office/Outpatient Visit,Est, Mod 2018 Office/Outpatient Visit,Est, Mod 2018 Advance Directives Directive Yes / No Effective Date File Name No Information Encounters Encounter Description Practice Location Reason(s) For Visit Diagnoses Date Provider Providers Copied on Encounter Office/Outpat ient Visit,Est, Mod [facility], [address], [place], [place], [id number] , [place] tel: [phone] [facility] [place] Spinal stenosis, lumbar region with neurogenic claudication Sarah Polk. [facility], [address], [place], [address], [place]. tel: [phone] Referring Provider: Jam Gregg, [facility] [address], [place], [address]. tel:[phone] Office/Outpat ient Visit,Est, Mod [facility], [address], [place], [place], [address] , [place] tel: [phone] [facility] Post Op - Normal Follow-up 4 Cristino Polk. [facility], [address], [place], [address], [place]. tel: [phone] Referring Provider: Jam Gregg, [facility] [address], [place], [address]. tel:[phone] [facility], [address], [place], [id number] , [place] tel: [phone] [facility] Encounter for other specified surgical aftercare 3 Schulte Leonidas. [facility], [address], [place], [address] , [place]. tel: [phone] Referring Provider: Jam Gregg, [facility] [address], [place], [address]. tel:[phone] [facility], [address], [place], [address] , [place] tel: [phone] [facility] Encounter for other specified surgical aftercare 3 Eris Lauren. [facility], [address], [place], [address] , [place]. tel: [phone] Referring Provider: Jam Gregg, [facility] [address], [place], [address]. tel:[phone] [facility], [address], [place], [address] , [place] tel: [phone] [facility] Encounter for other specified surgical aftercare 3 Eris Lauren. [facility], [address], [place], [place], [address] , [place]. tel: [phone] Referring Provider: Jam Gregg [facility] [address], [place], [address]. tel:[phone] [facility], [address], [place], [address] , [place] tel: [phone] [facility] No Information Feb- 3 Eris Lauren. [facility], [address], [place], [place], [address] , [place]. tel: [phone] Referring Provider: Jam Gregg, [facility] [address], [place], [address]. tel:[phone] [facility], [address], [place], [address] , [place] tel: [phone] [facility] No Information 3 Cristino Polk. [facility], [address], [place], [address], [place]. tel: [phone] Referring Provider: Jam Gregg, [facility] [address], [place], [address]. tel:[phone] Office/Outpat ient Visit,Est, Mod [facility], [address], [place], [address] , [place] tel: [phone] [facility] Spinal stenosis, lumbar region with neurogenic claudication Sep-0 3 Eris Lauren. [facility], [address], [place], [address] , [place]. tel: [phone] Referring Provider: Jam Gregg, [facility] [address], [place], [address]. tel:[phone] [facility], [address], [place], [address] , [place] tel: [phone] [facility] Spinal stenosis, lumbar region with neurogenic claudication 2 Cristino Polk. [facility], [address], [place], [address], [place]. tel: [phone] Referring Provider: Jam Gregg, [facility] [address], [place], [address]. tel:[phone] [facility], [address], [place], [address] , [place] tel: [phone] [facility] Encounter for other specified surgical aftercare 1 Cristino Polk. [facility], [address], [place], [address], [place]. tel: [phone] Referring Provider: Jam Gregg, [facility] [address], [place], [address]. tel:[phone] [facility], [address], [place], [address] , [place] tel: [phone] [facility] Spinal stenosis, lumbar region with neurogenic claudication 1 Eris Lauren. [facility], [address], [place], [address] , [place]. tel: [phone] Referring Provider: Lisa Hicks [facility] [address], [facility] [place], [address]. tel:[phone] [facility], [address], [place], [place], [address] , [place] tel: [phone] [facility] No Information 1 Eris Lauren. [facility], [address], [place], [address] , [place]. tel: [phone] Referring Provider: Lisa Hicks [facility] [address], [facility] [place], [address]. tel:[phone] [facility], [address], [place], [address] , [place] tel: [phone] [facility] No Information 1 Cristino Polk. [facility], [address], [place], [address], [place]. tel: [phone] Referring Provider: Lisa [facility] [address], [facility] [place], [address]. tel:[phone] Office/Outpat ient Visit,Est, High [facility], [address], [place], [address] , [place] tel: [phone] [facility] Spinal stenosis, lumbar region with neurogenic claudication 1 Cristino Polk. [facility], [address], [place], [address], [place]. tel: [phone] Referring Provider: Lisa Hicks Chand[facility] [address], [facility] [place], [address]. tel:[phone] OFFICE/OUTPAT IENT VISIT EST Phone [facility], [address], [place], [address] , [place] tel: [phone] [facility] No Information 1 Cristino Polk. [facility], [address], [place], [address], [place]. tel: [phone] Referring Provider: Lisa Hicks [facility] [address], [facility] [place], [address]. tel:[phone] [facility], [address], [place], [address] , [place] tel: [phone] [facility] Spinal stenosis, lumbar region with neurogenic claudication 1 Cristino Polk. [facility], [address], [place], [address], [place]. tel: [phone] Office/Outpat ient Visit,Est, Mod [facility], [address], [place], [address] , [place] tel: [phone] [facility] Arthrodesis status 1 Cristino Polk. [facility], [address], [place], [address], [place]. tel: [phone] Referring Provider: Bonnie Tomlinson, Amaya Fang [address] [facility] [address], [place], [address]. tel:[phone] [facility], [address], [place], [address] , [place] tel: [phone] [facility] Low back pain 1 Cristino Polk. [facility], [address], [place], [address], [place]. tel: [phone] Office/Outpat ient Visit,Est, Low [facility], [address], [place], [place], [address] , [place] tel: [phone] [facility] Arthrodesis status Cristino Polk. [facility], [address], [place], [address], [place]. tel: [phone] Referring Provider: Chandni [facility] [address], [facility] [place], [address]. tel:[phone] [facility], [address], [place], [address] , [place] tel: [phone] [facility] Arthrodesis status 9 Cristino Polk. [facility], [address], [place], [address], [place]. tel: [phone] Referring Provider: Chandni Loco [facility] [address], [facility] [place], [address]. tel:[phone] [facility], [address], [place], [address] , [place] tel: [phone] No Information 9 Eris Lauren. [facility], [address], [place], [address] , [place]. tel: [phone] Referring Provider: Chandni [facility] [address], [place], [address]. tel:[phone] [facility], [address], [place], [place], [address] , [place] tel: [phone] No Information 9 Cristino Polk. [facility], [address], [place], [address], [place]. tel: [phone] Referring Provider: Lisa Hicks [facility] [address], [place], [address]. tel:[phone] Office/Outpat ient Visit,Est, Mod [facility], [address], [place], [address] , [place] tel: [phone] [facility] [place] Spinal stenosis, cervical regionDysphagia Cristino Polk. [facility], [address], [place], [address], [place]. tel: [phone] Referring Provider: [facility] [address], [place], [address]. tel:[phone] Office/Outpat ient Visit,Est, Mod [facility], [address], [place], [place], [address] , [place] tel: [phone] [facility] [place] Cervicalgia 9 Eris Lauren. [facility], [address], [place], [address] , [place]. tel: [phone] Referring Provider: [facility] [address], [place], [address]. tel:[phone] [facility], [address], [place], [address] , [place] tel: [phone] [facility] [place] Pain in thoracic spine Matthew Noble. [facility], [address], [address], [place], [place], [address] , . tel:[phone] Family History Family Member Type Diagnosis Age At Onset No Information Payers Payer name Insurance type Covered libertarian ID Boo dawson(liana) [employer] [id number] Social History Type Description Quantity Date Captured Comments Alcohol Use Details Unknown Caffeine Use Details Unknown Tobacco Use Status Never smoked tobacco 2024 Smoking Status Never smoker Non-Smoking Tobacco Use Details : No Details Available : No Details Available Sex Male Vital Signs Date / Time: Height Weight BMI Pulse Rate Blood Pressure Temperature Respiratory Rate Body Surface Area Head Circumference Head Circ. Percentile Wt./Miguel. Percentile BMI percentile Pulse Ox Inhaled Ox 11:09 AM 68.58 in 108.409 kg (239.00 lbs) 35.7 3 kg/m eter (2) Chief Complaint And Reason For Visit No Information Reason For Referral Reason For Referral No Information History Of Present Illness Encounter Date Complaint History Of Prese nt Illness No Information Functional Status Date Functional Assessmen t No Information Instructions Date Instruction Additional Infor mation No Information Assessments Type Assessment Date assessment Spinal stenosis, lumbar region w ith neurogenic claudication Patient Care Teams Name Effective Dates (start - stop) Status Members No Information
[2024-07-14] MEDS: SODIUM CHLORIDE 0.9 % (FLUSH) 10 ML SYRINGE IVF (08:00)
[2024-07-14] MEDS: LACTATED RINGERS 1000 ML 1,000 ML 100 ML IV ×2 (08:00→10:38)
[2024-07-14] MEDS: CELECOXIB 200 MG CAPSULE PO (08:10)
[2024-07-14] MEDS: ACETAMINOPHEN 500 MG TABLET 1000 MG PO ×3 (08:10→19:50)
[2024-07-14] MEDS: OXYCODONE (CR) 10 MG TAB.ER.12H PO (08:10)
[2024-07-14] MEDS: fentaNYL 100 MCG/2 ML inj IVP (08:39)
[2024-07-14] MEDS: MIDAZOLAM HCL 1 MG/ML inj IVP (08:39)
--- NOTE | 2024-07-14 08:39 | SUR.PREOP ---
TIME?OUT:?0838 PT/RN/MDA?VERIFICATION?OF?SURGICAL?SITE,?PROCEDURE,?AND?CONSENT OBTAINED?PRIOR?TO?INVASIVE?PROCEDURE.
[2024-07-14] MEDS: CEFAZOLIN 2 GM INJ IVP (09:06)
[2024-07-14] MEDS: TRANEXAMIC ACID 100 MG/ML INJ 1000 MG IV (09:07)
--- NOTE | 2024-07-14 09:11 | P.NB_ITS ---
Nerve Block Nerve Block Time Seen by Provider: 08:44 Date Seen: 07/14/24 Type of block requested by surgeon for post-operative analgesia: HECTOR/LFCN Side: left Time out performed: Yes Verification of patient name: Yes Verification of date of : Yes Site marking: site marked Name of person performing procedure: Girish Continuous monitoring Was continuous monitoring of O2 sat, B/P, nurse monitoring, recorded every 15 minutes?: Yes Procedure Checklist: sterile prep, needles and gloves Ultrasound guided. Images saved: Yes Medications given in 5ml increments after negative aspiration: Ropivicaine %: 0.5 mL: 30 Needle gauge: 20 Precedex (mcg): 25 Patient tolerated procedure well: Yes Additional comments: Needle noted below psoas tendon needle noted adjacent to LFCN Block Charges Block Charge (with Pro Fee): Other Periph Nerve Block Use of Ultrasound Machine for Block: Yes- US Guidance/pain block
--- NOTE | 2024-07-14 09:11 | P.ANES_ITS ---
Anesthesia Charges Start Date/Time Anesthesia Start Date: 07/14/24 Anesthesia Start Time: 08:48 Stop Date/Time Anesthesia Stop Date: 07/14/24 Anesthesia Stop Time: 11:24 Coding CPT Codes CPT Codes: ANESTH HIP ARTHROPLASTY - 80812 ([id number]) P3 - PATIENT W/SEVERE SYS DISEASE, QK - TITLE CLERK AUTOMOBILE 2-4 CNCRNT ANES PROC, QX - MACHINERY MECHANIC SVC W/ MD MED DIRECTION
--- NOTE | 2024-07-14 09:11 | W.ANESCHARGE ---
Anesthesia Charges Start Date/Time Anesthesia Start Date: 07/14/24 Anesthesia Start Time: 08:48 Stop Date/Time Anesthesia Stop Date: 07/14/24 Anesthesia Stop Time: 11:24 Coding CPT Codes CPT Codes: ANESTH HIP ARTHROPLASTY - 40455 ([id number]) P3 - PATIENT W/SEVERE SYS DISEASE, QK - SPECIAL NEEDS CAREGIVER 2-4 CNCRNT ANES PROC, QX - COMMUNITY SERVICES OFFICER SVC W/ MD MED DIRECTION
--- NOTE | 2024-07-14 10:46 | PM.ORPRC ---
Procedure Note Date of procedure: 07/14/24 Procedure: PREOPERATIVE DIAGNOSIS: Left hip osteoarthritis POSTOPERATIVE DIAGNOSIS: Left hip osteoarthritis NAME OF OPERATION: Left total hip arthroplasty SURGEON: Jason Butt MD FOUNTAIN DISPENSER: Quin Gamble PA-C, LALIT Velazquez IMPLANTS: 1. [employer] [place] Bar # 52 sector ingrowth cup 2. 36 x 52 +4 neutral polyethylene 3. Actis #4 high offset collared ingrowth stem 4. 36 + 1.5 ceramic femoral head ANESTHESIA: General ESTIMATED BLOOD LOSS: 870 cc COMPLICATIONS: None SPECIMENS: None DRAINS: None PREOPERATIVE ANTIBIOTICS: Ancef 2 grams INDICATIONS: The patient is a 54-year-old with a longstanding history of severe, unrelenting left hip pain secondary to end-stage left hip osteoarthritis. Despite appropriate nonoperative management, including activity modification, use of an assist device, anti-inflammatories, [id number]-mib-bjuxrro pain medication, physical therapy and injections, they continue to have pain and disability. Operative intervention was offered. The risks, benefits and expected outcomes were discussed in detail. These included but were not limited to: Infection, bleeding, injury to blood vessel or nerve, venous thromboembolism. All questions were answered to their satisfaction. Use of an physician office assistant was necessary throughout the case for patient positioning and safety, soft tissue retraction and closure. PROCEDURE: The patient was placed supine on the [place] table. General anesthesia was administered. The physician office assistant made sure the patient was properly positioned. The left hip was prepped and draped in the usual sterile fashion. The image intensifier was brought in for a perfect AP pelvis and a perfect double tear drop AP view of each hip which were used for intraoperative templating with our fluoroscopic guide. An oblique incision was made 3 cm distal and 3 cm lateral to the anterior superior iliac spine. The physician office assistant retracted the soft tissues to protect them. Subcutaneous dissection was taken with electrocautery to the superficial fascia. The fascia was divided in line with the incision. Blunt dissection was carried medially to the tensor fascia lori and sartorius interval. Deep dissection was carried with electrocautery. The circumflex vessels were cauterized and divided. The capsule was exposed and then divided in a T-fashion, tagged with #1 Ethibond sutures. Retractors were placed in the joint, held by the physician office assistant. The corkscrew was placed in the femoral head. The neck cut was made in the subcapital region. We made a second neck cut more distal. The napkin ring of bone was removed. The femoral head was removed intact. Acetabular retractors were placed, held by the physician office assistant. The labrum was sharply debrided. The capsule was released. The 43 mm reamer was used to the true medial wall. We then enlarged in 2 mm increments using the image intensifier for our reamer placement. We impacted the cup which had excellent purchase. We placed the polyethylene. Attention was then turned to the proximal femur. The limb was placed in 140 degrees of external rotation, maximum extension and adduction. A significant amount of time was spent releasing the capsule to allow us to deliver the femur into the wound and complete the femoral side safely. Retractors were held by the physician office assistant throughout the femoral preparation. The ordering box operator and canal finder were used. Broaches were used to a stable size. The calcar reamer was used. Trial components were placed. The hip was reduced and was found to be stable with appropriate soft tissue tension. Length and offset had been nicely restored using the image intensifier and our fluoroscopic guide. Trial components were removed. The stem was impacted. We placed the femoral head. Again, the hip was reduced and was found to be stable with appropriate soft tissue tension. Length and offset had been nicely restored. The physician office assistant did a three minute dilute Betadine solution soak. The physician office assistant irrigated the wound with 3 liters of normal saline via pulse lavage. The physician office assistant repaired the anterior capsule with a #1 Vicryl and our previously placed Ethibond sutures. The physician office assistant closed the fascia over the tensor fascia lori with a #1 PDO Stratafix, subcutaneous tissues with 2-0 Vicryl, skin with a running 3-0 Stratafix and glue. A dry dressing was applied by the physician office assistant. Sponge and needle counts were correct x 2. The patient tolerated the procedure well; there were no apparent complications. They were awakened and extubated in the operating room, sent to the Post-Anesthesia Care Unit in satisfactory condition. PLAN: 1. The patient will be mobilized with physical therapy, weight-bearing as tolerates 2. Xarelto x 5 days then aspirin x 30 days will be used for DVT prophylaxis 3. The patient will be discharged once medically appropriate
--- NOTE | 2024-07-14 11:26 | P.ANES_ITS ---
Anesthesia Charges Start Date/Time Anesthesia Start Date: 07/14/24 Anesthesia Start Time: 08:48 Stop Date/Time Anesthesia Stop Date: 07/14/24 Anesthesia Stop Time: 11:24 Coding CPT Codes CPT Codes: ANESTH HIP ARTHROPLASTY - 84947 ([id number]) P3 - PATIENT W/SEVERE SYS DISEASE, QK - BATTERY FILLER 2-4 CNCRNT ANES PROC, QX - FIELD OPERATIONS TECHNICIAN SVC W/ MD MED DIRECTION
--- NOTE | 2024-07-14 11:26 | W.ANESCHARGE ---
Anesthesia Charges Start Date/Time Anesthesia Start Date: 07/14/24 Anesthesia Start Time: 08:48 Stop Date/Time Anesthesia Stop Date: 07/14/24 Anesthesia Stop Time: 11:24 Coding CPT Codes CPT Codes: ANESTH HIP ARTHROPLASTY - 41991 ([id number]) P3 - PATIENT W/SEVERE SYS DISEASE, QK - CLERK TO JUSTICE 2-4 CNCRNT ANES PROC, QX - HYDRO STATION SUPERVISOR SVC W/ MD MED DIRECTION
[2024-07-14] MEDS: fentaNYL 100 MCG/2 ML inj 50 MCG IVP ×2 (11:35→11:45)
--- NOTE | 2024-07-14 14:32 | PM.IMCN1 ---
Date of Consult Consult date: 07/14/24 Requesting Physician: Orthopedics Primary Care Provider: Katya Ireland CNP Consult Narrative Reason for consult: Medical management of comorbidities Narrative: King Chaidez is a 54 year old male who presented to the hospital today for an elective L [place] with Dr. Butt of Orthopedic Surgery. There were no surgical or anesthetic complications noted during procedure. Patient's H&P reviewed, PCP is Katya Ireland at the [facility]. Past medical history significant for: noninsulin dependent DM2, hyperlipidemia, GERD, spinal stenosis, essential HTN. Nonsmoker. History of blood clots: No Postoperative plan: Home with sister. Review of Systems Status of ROS: Reports: 10 or more systems reviewed and unremarkable except as noted in History and below [facility] Medical History (Updated 07/14/24 @ 16:29 by Rebeca Montano MD) Non-insulin dependent diabetes mellitus Spinal stenosis of lumbar region with neurogenic claudication ?M48.062 - Spinal stenosis, lumbar region with neurogenic claudication (ICD-10) Dysphagia ?R13.10 - Dysphagia, unspecified (ICD-10) Cervical spinal stenosis ?M48.02 - Spinal stenosis, cervical region (ICD-10) Sleep apnea ?G47.30 - Sleep apnea, unspecified (ICD-10) GERD (gastroesophageal reflux disease) ?K21.9 - Gastro-esophageal reflux disease without esophagitis (ICD-10) Gout ?M10.9 - Gout, unspecified (ICD-10) Hypertension ?I10 - Essential (primary) hypertension (ICD-10) Hyperlipemia ?E78.5 - Hyperlipidemia, unspecified (ICD-10) Surgical History (Updated 07/14/24 @ 16:29 by Rebeca Montano MD) Status post left hip replacement ?Z96.642 - Presence of left artificial hip joint (ICD-10) History of back surgery ?Z98.890 - Other specified postprocedural states (ICD-10) Status post osteotomy ?Z98.890 - Other specified postprocedural states (ICD-10) History of ankle surgery ?Z98.890 - Other specified postprocedural states (ICD-10) Status post cervical discectomy ?Z98.890 - Other specified postprocedural states (ICD-10) Social History (Reviewed 06/20/24 @ 13:11 by Edel Laureano ~ 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, 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) What is your current living situation?: I presently have a place to live Problems where you live: no known problems In the past 12 months, utilities in danger of being shut off: no In past 12 months, lack of transportation kept you from medical appts, meetings, work, or getting things needed for daily living: no In the past 12 mos, have been you worried that your food would run out before you had money to buy more?: never true In the past 12 mos, the food you bought just didn't last and you didn't have money to buy more?: never true Highest level of school completed/degree received: high school graduate Smoking Status: Never smoker Do you use any of these nicotine containing products: None Second hand tobacco smoke exposure: No How often do you have a drink containing alcohol: monthly or less Alcohol type: wine How many standard drinks containing alcohol do you have on a typical day: 1 or 2 How often do you have six or more drinks on one occasion: Never AUDIT-C Alcohol total score: 1 Non-prescribed substance use: denies use Caffeine: Yes How often does anyone, including family, friends and others, physically hurt you: never How often does anyone, including family, friends and others, insult or talk down to you: never How often does anyone, including family, friends and others, threaten you with harm: never How often does anyone, including family, friends and others, scream or curse at you: never service: No Meds Home Medications and Allergies Home Medications ?Medication ?Instructions ?Recorded ?Confirmed ?Type acetaminophen 500 mg capsule 1,000 mg PO Q6H PRN 09/17/23 07/14/24 History aspirin 81 mg capsule 81 mg PO DAILY 09/17/23 07/14/24 History atenolol 100 mg tablet 100 mg PO DAILY 09/17/23 07/14/24 History fenofibrate 160 mg tablet 160 mg PO DAILY 09/17/23 07/14/24 History losartan 100 mg tablet (Cozaar) 100 mg PO DAILY 09/17/23 07/14/24 History naproxen sodium 220 mg capsule 220 mg PO BID PRN 09/17/23 07/14/24 History (Aleve) omeprazole 20 mg capsule,delayed 20 mg PO DAILY 09/17/23 07/14/24 History release pravastatin 20 mg tablet 20 mg PO DAILY 09/17/23 07/14/24 History psyllium 1 packet PO DAILY 09/17/23 07/14/24 History gabapentin 100 mg capsule 300 mg PO DAILY 06/20/24 07/14/24 History glipizide 5 mg tablet 5 mg PO QDAY 06/20/24 07/14/24 History metformin 500 mg tablet 1,500 mg PO QDAY 06/20/24 07/14/24 History spironolactone 25 mg tablet 25 mg PO QAM 06/20/24 07/14/24 History tizanidine 2 mg tablet 2 - 4 mg PO Q8H PRN muscle spasm 06/20/24 07/14/24 History Allergies Allergy/AdvReac Type Severity Reaction Status Date / Time penicillin G Allergy Anaphylaxis Verified 07/14/24 07:44 Exam Narrative: Exam Narrative: GEN: Alert and oriented, resting comfortably in bed HEENT: EOMIs bilaterally, no scleral icterus CV: RRR, soft systolic murmur without concerning features or radiation R: LCTA bilaterally Skin: No concerning skin lesions or rashes on exposed skin Neuro: Nonfocal Psych: Appropriate Const: Vital Signs, click to edit/add: Vital Signs - 24 hr 07/14/24 08:00 07/14/24 08:39 07/14/24 08:45 Temperature 98.5 F Pulse Rate 71 76 80 Respiratory Rate 16 16 16 Blood Pressure 149/98 H 139/96 H 166/104 H Pulse Oximetry 94 97 96 Oxygen Delivery Me thod Room Air Nasal Cannula Nasal Cannula Oxygen Flow Rate 2 2 07/14/24 11:22 07/14/24 11:30 07/14/24 11:35 Temperature 98.3 F Pulse Rate 79 73 81 Respiratory Rate 14 12 14 Blood Pressure 159/100 H 150/88 H 153/94 H Pulse Oximetry 97 96 96 Oxygen Delivery Me thod Nasal Cannula Nasal Cannula Nasal Cannula Oxygen Flow Rate 2 4 4 07/14/24 11:40 07/14/24 11:45 07/14/24 11:50 Temperature 98.1 F Pulse Rate 86 80 78 Respiratory Rate 12 12 12 Blood Pressure 155/92 H 160/62 H Pulse Oximetry 96 96 97 Oxygen Delivery Me thod Nasal Cannula Nasal Cannula Nasal Cannula Oxygen Flow Rate 4 4 4 Assessment and Plan Assessment and plan (1) Status post left hip replacement: Problem comment: - 07/14/24, Dr. Butt Status: Acute (2) Non-insulin dependent diabetes mellitus: Problem comment: - continue home meds, accuchecks with SSI - last A1C 7.7 04/2024 Status: Acute Plan - pain management and prophylaxis per orthopedic surgery team - continue home medications for comorbidities - anticipate routine postoperative course
[2024-07-14] MEDS: OXYCODONE 5 MG TABLET PO ×3 (16:21→21:53)
[2024-07-14] MEDS: CEFAZOLIN 2 GM in 0.9 % SODIUM CHLORIDE Mini-bag 100 ML IVPB (16:21)
[2024-07-14] MEDS: LACTATED RINGERS 1000 ML 1,000 ML 75 ML IV (20:13)
[2024-07-14] MEDS: SENNOSIDES 1 TAB TABLET 2 TAB PO (21:15)
[2024-07-14] MEDS: atenoloL 50 MG TABLET 100 MG PO (22:18)
[2024-07-15] MEDS: CEFAZOLIN 2 GM in 0.9 % SODIUM CHLORIDE Mini-bag 100 ML IVPB (00:37)
[2024-07-15] MEDS: ACETAMINOPHEN 500 MG TABLET 1000 MG PO ×2 (01:33→08:24)
[2024-07-15] MEDS: OXYCODONE 5 MG TABLET PO ×4 (01:33→10:31)
[2024-07-15 03:00] VITALS: BP 143/95; PULSE 87; RESP 18; TEMP 36.8; O2SAT 91
[2024-07-15] MEDS: OMEPRAZOLE 20 MG CAPSULE DR PO (06:19)
[2024-07-15 06:52] LABS: Basophils Percent Auto 0.1 % (0.0-3.0); Eosinophils Percent Auto 0.1 % (0.0-7.0); Hematocrit 39.9 % (37.0-53.0); Hemoglobin* 12.8 gm/dL (13.5-17.5); Immature Granulocytes Pct Auto 0.3 %; Lymphocytes Percent Auto 12.9 % (20-44); Mean Corpuscular HGB Conc 32 gm/dL (32-36); Mean Corpuscular Hemoglobin 29 pg (26-34); Mean Corpuscular Volume 92 fL (80-100); Monocytes Percent Auto 12.5 % (0.0-11.0); Neutrophils Percent Auto 74.1 % (42.0-72.0); Platelet Count* 172 K/uL (140-440); RDW Coefficient of Variation % 13.1 % (11.5-15.5); Red Blood Count 4.36 m/uL (4.30-5.90); White Blood Count* 11.89 K/uL (4.50-11.00)
[2024-07-15 07:00] VITALS: RESP 18; O2SAT 94
--- NOTE | 2024-07-15 07:05 | PC.NURSE ---
Shift note ([id number]): Patient pleasant, alert and oriented. Denied pain. Ambulates independently in room. Andrew wrap and dressing intact to right lower leg. Temp 99.0 during night. BS 140 at HS.?
--- NOTE | 2024-07-15 07:10 | PC.NURSE ---
Shift note ([id number]: Patient pleasant, alert and oriented. Given PRN Oxycodone for pain rated 8/10. ??Ambulates with assist of one, walker and gait belt. Dressing to left hip clean, dry and intact. Active ice applied.?
[2024-07-15 07:17] LABS: Potassium* 4.6 mmol/L (3.6-5.1); Sodium* 134 mmol/L (135-149)
[2024-07-15 07:20] LABS: Blood Urea Nitrogen* 18 mg/dL (7-30); Creatinine* 0.8 mg/dL (0.5-1.5); Est. Creatinine Clearance* 99.75; Estimated Glomerular Filt Rate 104 ml/min
[2024-07-15 07:23] LABS: Slide Review Reflex No
[2024-07-15] MEDS: glipiZIDE 5 MG TABLET PO (07:39)
[2024-07-15 07:55] VITALS: BP 170/87; PULSE 92; RESP 18; TEMP 37.4; O2SAT 93
[2024-07-15] MEDS: RIVAROXABAN 10 MG TABLET PO (08:23)
[2024-07-15] MEDS: GABAPENTIN 100 MG CAPSULE 300 MG PO (08:23)
[2024-07-15] MEDS: SPIRONOLACTONE 25 MG TABLET PO (08:25)
[2024-07-15] MEDS: LOSARTAN POTASSIUM 50 MG TABLET 100 MG PO (08:25)
[2024-07-15] MEDS: SENNOSIDES 1 TAB TABLET 2 TAB PO (08:25)
--- NOTE | 2024-07-15 09:23 | PM.ORPN ---
Subjective Subjective Time Seen by Provider: 07:34 Date Seen: 07/15/24 Principal diagnosis: Status post left hip replacement Interval history: King is fairly comfortable in the recliner, however he does have anterior and medial thigh discomfort. He has been icing. He will be discharging to home today. Ortho Exam Narrative Exam Narrative: Alert and oriented x3. Patient is in no acute distress. Converses without labored breathing. Hearing is grossly intact. Ambulates with a walker. Examination of the left hip shows the dressing is in place. Soft tissue edema is mild. CMS intact left lower extremity. Pedal pulses are faint. Calves are soft and nontender. He is able to plantar flex and dorsiflex the left ankle and great toe. Tenderness over the anterior thigh. When I touched his foot to palpate pulses, he startled/jerked and states that he had a shooting pain going from his foot up his leg. Large abdomen and pannus Const Vital Signs, click to edit/add: Vital Signs - 24 hr 07/14/24 11:22 07/14/24 11:30 07/14/24 11:35 Temperature 98.3 F Pulse Rate 79 73 81 Pulse Rate [Left Pulse Oximeter] Respiratory Rate 14 12 14 Blood Pressure 159/100 H 150/88 H 153/94 H Blood Pressure [Left Arm] Blood Pressure [Right Arm] Pulse Oximetry 97 96 96 Oxygen Delivery Method Nasal Cannula Nasal Cannula Nasal Cannula Oxygen Flow Rate 2 4 4 07/14/24 11:40 07/14/24 11:45 07/14/24 11:50 Temperature 98.1 F Pulse Rate 86 80 78 Pulse Rate [Left Pulse Oximeter] Respiratory Rate 12 12 12 Blood Pressure 155/92 H 160/62 H Blood Pressure [Left Arm] Blood Pressure [Right Arm] Pulse Oximetry 96 96 97 Oxygen Delivery Method Nasal Cannula Nasal Cannula Nasal Cannula Oxygen Flow Rate 4 4 4 07/14/24 11:56 07/14/24 12:00 07/14/24 12:15 Temperature 97.5 F L 97.5 F L 98.1 F Pulse Rate 85 85 88 Pulse Rate [Left Pulse Oximeter] Respiratory Rate 16 16 16 Blood Pressure 167/95 H 155/99 H 134/94 H Blood Pressure [Left Arm] Blood Pressure [Right Arm] Pulse Oximetry 97 97 97 Oxygen Delivery Method Nasal Cannula Nasal Cannula Nasal Cannula Oxygen Flow Rate 4 4 4 07/14/24 12:30 07/14/24 12:45 07/14/24 13:00 Temperature Pulse Rate 85 86 83 Pulse Rate [Left Pulse Oximeter] Respiratory Rate 16 16 16 Blood Pressure 136/87 132/84 132/76 Blood Pressure [Left Arm] Blood Pressure [Right Arm] Pulse Oximetry 97 97 100 Oxygen Delivery Method Nasal Cannula Nasal Cannula Nasal Cannula Oxygen Flow Rate 4 4 4 07/14/24 13:30 07/14/24 15:00 07/14/24 15:00 Temperature Pulse Rate 85 86 Pulse Rate [Left Pulse Oximeter] Respiratory Rate 16 16 16 Blood Pressure 123/77 132/83 Blood Pressure [Left Arm] Blood Pressure [Right Arm] Pulse Oximetry 97 97 97 Oxygen Delivery Method Room Air Nasal Cannula Room Air Oxygen Flow Rate 07/14/24 15:23 07/14/24 16:00 07/14/24 17:00 Temperature 97.5 F L 97.5 F L Pulse Rate 85 78 79 Pulse Rate [Left Pulse Oximeter] Respiratory Rate 16 16 16 Blood Pressure 167/9 H 123/77 146/92 H Blood Pressure [Left Arm] Blood Pressure [Right Arm] Pulse Oximetry 97 97 97 Oxygen Delivery Method Nasal Cannula Room Air Room Air Oxygen Flow Rate 4 07/14/24 18:00 07/14/24 19:38 07/14/24 21:28 Temperature 98.7 F 98.9 F Pulse Rate 78 Pulse Rate [Left Pulse Oximeter] 114 H 109 H Respiratory Rate 16 16 16 Blood Pressure 130/74 Blood Pressure [Left Arm] Blood Pressure [Right Arm] 153/95 H 168/115 H Pulse Oximetry 97 93 93 Oxygen Delivery Method Room Air Room Air Room Air Oxygen Flow Rate 07/14/24 21:58 07/14/24 23:00 07/14/24 23:00 Temperature 98.8 F 98.7 F Pulse Rate Pulse Rate [Left Pulse Oximeter] 107 H 90 Respiratory Rate 16 17 17 Blood Pressure Blood Pressure [Left Arm] Blood Pressure [Right Arm] 177/105 H 146/89 H Pulse Oximetry 94 92 92 Oxygen Delivery Method Room Air Room Air Room Air Oxygen Flow Rate 07/15/24 03:00 07/15/24 07:00 07/15/24 07:55 Temperature 98.3 F 99.3 F Pulse Rate Pulse Rate [Left Pulse Oximeter] 87 92 Respiratory Rate 18 18 18 Blood Pressure Blood Pressure [Left Arm] 143/95 H 170/87 H Blood Pressure [Right Arm] Pulse Oximetry 91 94 93 Oxygen Delivery Method Room Air Room Air Room Air Oxygen Flow Rate Assessment and Plan Assessment and plan (1) Non-insulin dependent diabetes mellitus: Problem details: - continue home meds, accuchecks with SSI - last A1C 7.7 04/2024 Status: Acute (2) Status post left hip replacement: Problem details: - 07/14/24, Dr. Butt Status: Acute Plan Plan for discharge is today, and when they meets discharge criteria. DVT prophylaxis upon discharge includes Xarelto 10mg daily for a total of 5 days, then Aspirin 81mg twice daily for 30 days. Remove dressing 1 week. Observe wound and phone Orthopedics with any questions or concerns. We discussed that his proximal wound could possibly have complications due to the large pannus and wound folding over itself. This area is often difficult to heal. We discussed ways to try to avoid issues. He will keep the dressing on until I see him next week. I will likely put another dressing on for another week to protect this area. It is not always 100% helpful an preventing proximal wound issues with a large pannus, due to moisture and pressure in the fold. Use Ice on operative hip unrestricted. Return to clinic in 7-10 days for a wound check Return to clinic in 6 weeks with surgeon Minimize narcotic use. Wean off and discontinue soon as possible. Activities as tolerated. No strenuous activity. Attend outpt PT
--- NOTE | 2024-07-15 10:58 | PC.NURSE ---
shift note: pt up sba/walker. IV dc'd intact Lt FA. Reviewed dc instructions and copies sent with pt. Belongings reviewed and sent with pt at dc.
== END 2024-07-15 11:03 | disposition home or self-care (01) ==
LOC: OR 07:03 → MEDSURG 07:33
PROVIDERS: PCP Family Medicine; Visit Provider Orthopaedic Surgery
PROC: (CPT 27130; principal; 2024-07-14 09:00)
DX: M16.12 Unilateral primary osteoarthritis, left hip (principal); G89.18 Other acute postprocedural pain; E11.9 Type 2 diabetes mellitus without complications; Z79.84 Long term (current) use of oral hypoglycemic drugs; G47.30 Sleep apnea, unspecified; I10 Essential (primary) hypertension; K21.9 Gastro-esophageal reflux disease without esophagitis; M48.062 Spinal stenosis, lumbar region with neurogenic claudication; M48.02 Spinal stenosis, cervical region; E78.5 Hyperlipidemia, unspecified
CPT/HCPCS: 27130; 01214; 36415; 64450; 73501; 76000; 76942; 82565; 82962; 84132; 84295; 84520; 85025; 86850; 86900; 86901; 97110; 97116; 97161; 97165; 97530; 97535; A9270; C1776; J0330; J0690; J2250; J2704; J2795; J3010; J3475; J3490; J7120

== ENCOUNTER 2024-07-22 14:29 | Outpatient (CLI) | payer OTHER, SELFPAY | END 2024-07-22 14:30 | disposition home or self-care (01) | LOC: US 14:30 | PROVIDERS: PCP Family Medicine; Visit Provider Physician Assistant | DX: M79.605 Pain in left leg (principal); M79.89 Other specified soft tissue disorders; Z96.642 Presence of left artificial hip joint | CPT/HCPCS: 93971 ==